=== PATIENT | male | born 1965 | race American Indian/Alaskan Native ===

== ENCOUNTER 2018-04-30 13:17 | Emergency (ER) | payer OTHER, SELFPAY ==
[2018-04-30 13:25] VITALS: BP 159/100; PULSE 73; RESP 16; TEMP 36.6; O2SAT 96
--- NOTE | 2018-04-30 13:59 | DI.RAD_ITS ---
SYMPTOMS/DIAGNOSIS: DISTAL PHALANX PAIN, CONCERN FOR INFECTION LEFT INDEX FINGER: There is generalized soft tissue swelling. There is an apparent tiny bony density adjacent to the anterior portion of the proximal metaphysis of the distal phalanx, which could certainly represent a small cortical avulsion, possibly at the site of the attachment of the flexor tendon. There is otherwise nothing to suggest a fracture or dislocation. The generalized soft tissue swelling could certainly be on the basis of cellulitis. No focal soft tissue abnormality, or gas in the soft tissues or foreign body is demonstrated.
--- NOTE | 2018-04-30 15:18 | W.ED.GENAD ---
Discharge Plan Disposition Patient Disposition: HOME Condition: Stable Discharge Details Chief Complaint: Orthopedic Clinical Impression: Frostbite of finger of right hand Primary Care Provider: Milton Cameron ED Provider: Rich Jaime Home Meds and New Rx's Prescriptions: New aspirin 81 mg tablet,chewable 81 mg PO DAILY Qty: 14 RF: 0 ibuprofen [IBU] 600 mg tablet 600 mg PO QID PRN (Reason: pain) Qty: 14 RF: 0 Discontinued ibuprofen 200 MG tablet 400 mg PRN PRNRF: 0 Discharge Instructions Instructions: Frostbite (ED) Additional Instructions: Continue to take ibuprofen as directed for discomfort and you may continue to apply topical antibiotic ointment such as bacitracin. Follow-up with orthopedist in the next couple weeks for reassessment. Return to the emergency department for any new or significant worsening of your symptoms. Referrals: Luiz Peralta MD [ [facility] STAFF PHYSICIAN] - 2 weeks (for reassessment) Discharge Data Discharge Date/Time-TO BE ENTERED AT DEPARTURE: 04/30/18 15:38 Medical Decision Making Patient presenting to the emergency department for chief complaint of frostbite. Patient states approximately 2 weeks ago he was working on his snow machine and he had to take his gloves off housing him to get frostbite on the right hand on the distal aspects of the first and second fingers. He states that they initially turned blue and were numb. Over the course of the next couple days the middle finger had return of sensation and now is back to his normal. Patient has full function of the digits but his concern today is that the index finger has had continued loss of sensation and that the nailbed has started to lift at the distal end of his fingernail, there is more pain and throbbing proximal to the area of frostbite. Patient denies any fever chills, streaking redness, or purulent drainage just increasing pain. Radiological imaging was ordered of the finger. Patient states taking ibuprofen prior to arrival. Review of radiological imaging shows no gas underneath the skin, no bony abnormality, otherwise unremarkable. Called and spoke with Dr. Peralta due to nailbed changes in finger changes and possible need of surgery which she recommended patient follow-up in their office in the next couple weeks, take a daily aspirin, and continue to use NSAIDs for pain relief. Patient prescribed ibuprofen and aspirin as recommended and encouraged to return to the emergency department for any new or worsening some. After discussion of diagnosis and plan of care patient has no further needs, questions, or concerns and states clear understanding to return to the emergency department for any worsening symptoms. HPI General Mode of arrival: ambulatory. Date/Time Provider Initiated Documentation: 04/30/18 13:22. Limitations to Documentation: no limitations. Information obtained by: patient and RN notes reviewed. History of Present Illness 52 year old M presents to the emergency department with the chief complaint of harper bite, described as moderate, with intensity rated at 6. Quality is described as aching and other (throbbing), and is localized to the right and upper extremity. Patient reports no radiation. Patient started experiencing this week(s) (2) and it has been constant. No relieving factors improve symptom(s), No exacerbating factors reported . Patient notes no other symptoms.. Related Data Home Medications Medication Instructions Recorded Confirmed aspirin 81 mg PO DAILY #14 tab 04/30/18 ibuprofen [IBU] 600 mg PO QID PRN #14 tab 04/30/18 Previous Rx's Medication Instructions Recorded aspirin 81 mg PO DAILY #14 tab 04/30/18 ibuprofen [IBU] 600 mg PO QID PRN #14 tab 04/30/18 Allergies Allergy/AdvReac Type Severity Reaction Status Date / Time No Known Allergies Allergy Unverified 04/30/18 13:30 General Stated Complaint: ColdExpose JEANNETTE: 4 Review of Systems Constitutional Denies chills, Denies fever(s) and Denies weakness Cardiovascular Denies chest pain, Denies syncope and Denies dyspnea Respiratory Denies cough and Denies dyspnea Musculoskeletal Reports numbness Integumentary/Breasts Reports as per HPI, Reports nail changes and Reports skin pain Neurologic Denies syncope, Reports numbness and Denies weakness [facility] Medical History Gout (Acute) Social History Smoking/Tobacco Use Status: Current every day Exam Const General: cooperative, no acute distress and not ill appearing Orientation: alert, awake and oriented x3 HENMT Mouth: moist mucous membranes Resp Effort & Inspection: normal respiratory effort, able to speak in complete sentences and no respiratory distress Cardio Rate: regular rate Rhythm: regular rhythm Skin General skin exam: no rashes or lesions noted Neuro General: alert, awake, oriented x3, moves all extremities and no focal motor deficits Sensory Exam: no sensory deficits noted Extrem General: normal exam except as noted Right upper extremity: hand Details: normal capillary refill, neuromotor exam normal, tenderness Location: of the 2nd digit Location: at the distal phalanx (With extreme distal phalanx having no sensation), at the nailbed and involving the fingernail and normal ROM of fingers Course Vital Signs Temperature 36.6 C 04/30/18 13:25 Pulse 73 04/30/18 13:25 Respiratory Rate 16 04/30/18 13:25 Blood Pressure 159/100 H 04/30/18 13:25 Pulse Oximetry 96 04/30/18 13:25 Temperature 36.6 C 04/30/18 13:25 Temperature Source Skin 04/30/18 13:25 Pulse 73 04/30/18 13:25 Respiratory Rate 16 04/30/18 13:25 Blood Pressure 159/100 H 04/30/18 13:25 Blood Pressure Position Sitting 04/30/18 13:25 Pulse Oximetry 96 04/30/18 13:25 Oxygen Delivery Method Room Air 04/30/18 13:25 Oxygen Flow Rate 0 04/30/18 13:25 Pain Level 6 04/30/18 13:25
== END 2018-04-30 15:38 | disposition home or self-care (01) ==
PROVIDERS: Emergency Provider Nurse Practitioner Family; PCP Family Medicine
DX: T33.531A Superficial frostbite of right finger(s), initial encounter (principal)
CPT/HCPCS: 99284; 73140; 99283

== ENCOUNTER 2018-07-22 10:09 | Outpatient (CLI) | payer SELFPAY ==
--- NOTE | 2018-07-22 09:55 | DI.RAD_ITS ---
SYMPTOMS/DIAGNOSIS: HIT WITH HAMMER LEFT INDEX FINGER: Comparison 04/30/18. The tiny osseous fragment at the volar aspect of the base of the distal phalanx of the left index finger is unchanged. No new fracture or dislocation is appreciated.
== END 2018-07-22 10:29 ==
PROVIDERS: PCP Family Medicine; Visit Provider Orthopaedic Surgery
DX: M79.645 Pain in left finger(s) (principal); S69.92XA Unspecified injury of left wrist, hand and finger(s), initial encounter; W22.8XXA Striking against or struck by other objects, initial encounter
CPT/HCPCS: 73140

== ENCOUNTER 2018-07-24 10:02 | Day surgery (SDC) | payer SELFPAY ==
[2018-07-24 10:13] VITALS: BP 138/100; PULSE 103; RESP 18; TEMP 36.3; O2SAT 94
[2018-07-24] MEDS: Lactated Ringers 1,000 ML 80 ML IV (10:39)
--- NOTE | 2018-07-24 13:25 | W.COLOREPORT ---
Date of service: 07/24/18 Time of Service: 13:25 Colonoscopy Report Date of procedure: 07/24/18 Pre-op diagnosis general: CRC sreening Post-op diagnosis procedure note: same Procedure: ce Surgeon: Becky Pinto Anesthesia proc note operative: GETA Estimated blood loss (mL): 0 Pathology: none sent Complications: None Disposition: PACU Indications: screen Prep: Miralax Retraction Time: 15 mins Findings: normal Procedure Description: After informed consent was obtained the patient was taken to the procedure room and placed in a left decubitous position. Monitors were applied and a time out was done. The patients name, date of , procedure, allergies to medications and metal in their body was reviewed. The patient was then sedated. Once sedated and comfortable a rectal exam was done. External exam shows some flat type epithelial lesion. mult scattered. Internal exam revealed a normal sphincter tone and no palpable masses. The prostate nl The scope was then introduced and retroflex. [ no] internal hemorrhoids were identified. The scope was then advanced to the cecum minimal difficulty. The TI and appendiceal orifice were identified. The prep was moderate- there was some liquid material left. This was washed off as best we could- small lesions <5cm may have been missed. The scope was then slowly retracted over 15 minutes back into the rectum. no Polyps were removed The scope was removed and the patient was woken up and taken back to Same day surgery in stable condition. The patient tolerated the procedure well and there were no immediate complications. Follow up: The patient should follow up in 10 years unless they develop changes in bowel habits or other new gastrointestinal complaints.
--- NOTE | 2018-07-24 13:42 | W.PM.DSUDISC ---
Discharge Plan Disposition Patient Disposition: HOME Condition: Good Discharge Details Reason For Visit: SCREENING Attending Provider: Becky Pinto Primary Care Provider: Milton Cameron Home Meds and New Rx's Prescriptions: Continued naproxen sodium [Aleve] 220 mg tablet 220 mg PO BID PRNRF: 0 ibuprofen 200 mg capsule 200 mg PO TID-QID PRNRF: 0 acetaminophen [Acetaminophen Extra Strength] 500 mg Tablet 1,000 mg PO RF: 0 aspirin 81 mg tablet,chewable 81 mg PO DAILY Qty: 14 RF: 0 Discontinued polyethylene glycol 3350 17 gram/dose powder 238 g PO ONCE Qty: 238 RF: 0 bisacodyl [Dulcolax (bisacodyl)] 5 mg tablet,delayed release (DR/EC) 5 mg PO ONCE Qty: 4 RF: 0 Discharge Instructions Additional Instructions: Findings: normal colon repeat in 10 yrs time Follow up: Please call if you develop: fevers >101.5 Nausea or Vomiting Abdominal pain that is not transient DAY SURGERY UNIT POST COLONOSCOPY INSTRUCTIONS 1. Because there will be medication in your system for the next 24 hours, you may feel a little sleepy. Your coordination will be affected. Therefore: a. Do not drive or operate dangerous equipment for 24 hours. b. Do not drink alcohol beverages for 24 hours (not even beer). c. Plan to go home and rest for the day. 2. Generally there are no restrictions on your activity after a day or so has gone by, but you may feel a bit fatigued for a few days. 3 After you arrive home you may have a light meal and return to a normal diet as you can tolerate it without feeling sick to your stomach. 4. After surgery, you may feel pain or discomfort. This should be only transient, but if it persists please contact your doctor. 5. If there are any questions regarding the findings of your procedure, please feel free to contact your doctor. 6. If you are unable to contact your doctor with a problem, contact the hospital at [phone]. 7. Continue all your regular medications unless directed otherwise. I understand the above instructions and have no questions. Signature of Patient or Responsible Adult Escort Date/Time Name of Responsible Adult Escort Signature of Nurse Date/Time Stand Alone Forms: Lazara Andre (PRATEEKU) Activity:: Activity as Tolerated Diet:: soft x 24 hrs Discharge Orders Discharge Orders: Discharge Order (Routine); Ordered 07/24/18 Ordered By: Becky Pinto DS: Diagnosis Discharge Diagnosis (1) Encounter for screening colonoscopy: Status: Acute
[2018-07-24 14:00] VITALS: BP 148/101; PULSE 78; RESP 16; TEMP 36.1; O2SAT 95
== END 2018-07-24 14:19 | disposition home or self-care (01) ==
PROVIDERS: PCP Family Medicine; Visit Provider Surgery
PROC: 0DJD8ZZ Inspection of Lower Intestinal Tract, Via Natural or Artificial Opening Endoscopic (ICD-10-PCS; CPT 45378; principal; 2018-07-24 11:45)
DX: Z12.11 Encounter for screening for malignant neoplasm of colon (principal)
CPT/HCPCS: 45378

== ENCOUNTER 2019-09-16 11:27 | Outpatient (CLI) | payer SELFPAY ==
[2019-09-17 15:30] LABS: COVID-19 RT-PCR Result NEGATIVE (Negative)
== END 2019-09-16 11:47 ==
PROVIDERS: PCP Family Medicine; Visit Provider Family Medicine
DX: Z11.59 Encounter for screening for other viral diseases (principal)
CPT/HCPCS: U0003

== ENCOUNTER 2020-09-23 09:14 | Emergency (ER) | payer SELFPAY ==
[2020-09-23 09:20] VITALS: BP 141/100; PULSE 86; RESP 16; TEMP 36.6; O2SAT 94
--- NOTE | 2020-09-23 09:36 | ED.GENADUL_ITS ---
Discharge Plan Disposition Patient Disposition: HOME Condition: Stable Discharge Details Clinical Impression: Dental infection, Right facial swelling Primary Care Provider: Milton Cameron ED Provider: Chrissy Tinoco Home Meds and New Rx's Prescriptions: New penicillin V potassium 500 mg tablet 500 mg PO QID 7 Days Qty: 28 RF: 0 Continued naproxen sodium [Aleve] 220 mg tablet 220 mg PO BID PRNRF: 0 ibuprofen 200 mg capsule 200 mg PO TID-QID PRNRF: 0 acetaminophen [Acetaminophen Extra Strength] 500 mg Tablet 1,000 mg PO PRN PRNRF: 0 aspirin 81 mg tablet,chewable 81 mg PO DAILY Qty: 14 RF: 0 Discharge Instructions Instructions: Dental Abscess (ED) Additional Instructions: You appear to have a dental infection. There is no abscess noted but you were given dental abscess instructions for further information. Your antibioitic prescription has been sent electronically to your pharmacy. Ca ll the pharmacy to make sure your prescription is ready before pickup. Take the prescription as directed. Alternate tylenol and motrin as needed and directed for pain. Do not take naproxen and ibuprofen at the same time as these are both NSAIDs (nonsteroidal anti-inflammatory drugs) which can increase your risk of GI bleeding or ulcer. You can take either naproxen or naproxen as an NSAID as needed and directed for pain. You likely cannot receive your second Covid vaccine today as you have a dental infection and this may cause worsening side effects on your immune system which is already trying to fight off an infection in your tooth. Go to the [facility] today to discuss whether they recommend withholding on your vaccine today and if so, when to reschedule it. Call [facility] on Friday to schedule follow-up appointment for reevaluation. They likely will not see you until your infection is treated Return immediately to the emergency department if you develop any worsening or new concerning symptoms. Discharge Data Discharge Physician: Chrissy Tinoco Medical Decision Making 55-year-old male presents with right upper dental pain and right-sided facial swelling since yesterday. Similar presentation 1 month ago diagnosed possibly sialoadenitis or parotitis and advised on supportive care. No antibiotics given at that time. His blood pressure is mildly elevated, otherwise vitals within normal limits. He is afebrile and appears nontoxic. He has poor dentition and dental caries throughout. He is tender to palpation around tooth #4 and 5 with surrounding mild mucosal edema and erythema but no abscess noted. There is right-sided facial swelling over the maxilla consistent with local inflammatory reaction to dental infection. Patient presentation does not appear consistent with sialoadenitis of parotitis at this time. He has no drooling, trismus, submandibular swelling or preauricular swelling or tenderness. We will treat with oral antibiotics. Patient advised that likely he should not receive the second was ordered vaccine today. He is advised to go to [facility] to discuss this further with them and hopefully reschedule his vaccine. Advised to follow-up with dentist for reevaluation. Usual and customary return precautions given prior to discharge. Medical Records Medical records reviewed: Yes I reviewed the patient's medical records. HPI General Mode of arrival: ambulatory . Date/Time Provider Initiated Documentation: 09/23/20 09:15 . Limitations to Documentation: no limitations . Information obtained by: patient . HPI Narrative: Patient is a 55-year-old male who presents with right-sided facial swelling and dental pain since yesterday. Patient states he had similar symptoms last month which was told it may be a salivary duct stone by his PCP and we his advised on supportive care but not treated with antibiotics. Patient states his symptoms completely resolved until yesterday when he noted dental pain and right-sided facial swelling. He denies any known fever, difficulty swallowing, cough, chest pain, shortness of breath or vomiting. Patient states he is scheduled for a second look during the Covid vaccine today and is unsure if he should get this. Related Data Home Medications Medication Instructions Recorded Confirmed aspirin 81 mg PO DAILY #14 tab 04/30/18 09/23/20 naproxen sodium 220 mg tablet 220 mg PO BID PRN 05/21/18 09/23/20 ibuprofen 200 mg capsule 200 mg PO TID-QID PRN 07/17/18 09/23/20 acetaminophen [Acetaminophen Extra 1,000 mg PO PRN PRN 07/24/18 09/23/20 Strength] penicillin V potassium 500 mg PO QID 7 Days #28 tab 09/23/20 Previous Rx's Medication Instructions Recorded aspirin 81 mg PO DAILY #14 tab 04/30/18 penicillin V potassium 500 mg PO QID 7 Days #28 tab 09/23/20 Allergies Allergy/AdvReac Type Severity Reaction Status Date / Time No Known Allergies Allergy Verified 09/01/20 09:13 General Stated Complaint: DentalOral JEANNETTE: 3 Review of Systems All systems reviewed & are unremarkable except as noted in HPI and below Constitutional Constitutional: Reports as per HPI, Denies chills and Denies fever(s) Eyes Eyes: Denies blurry vision ENT Ears, Nose, Mouth, and Throat: Reports dental pain, Denies dizziness, Reports facial pain (and swelling), Denies sore throat and Denies throat swelling Cardiovascular Cardiovascular: Denies chest pain and Denies dyspnea Respiratory Respiratory: Denies cough and Denies dyspnea Gastrointestinal Gastrointestinal: Denies abdominal pain, Denies diarrhea and Denies vomiting Genitourinary Genitourinary: Denies hematuria and Denies dysuria Musculoskeletal Musculoskeletal: Denies back pain and Denies numbness Integumentary/Breasts Skin/Breast: Denies lesions and Denies rash Neurologic Neurologic: Denies dizziness, Denies localized weakness and Denies numbness Allergic/Immunologic Allergic/Immunologic: Denies throat swelling [facility] Medical History (Updated 09/23/20 @ 09:37 by Chrissy Tinoco DO) Frostbite Left index and middle fingers Gout Gout History of pneumothorax Normal colonoscopy Surgical History History of arthroscopy of left knee History of esophagogastroduodenoscopy (EGD) 07/24/[address] Becky Pinto, [facility], normal, repeat in ten years. 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 Pets and animals: Yes Pets and animals: dog(s) Current gender identity: male What type of physical activity do you participate in: occasional exercise Seatbelt use: always Drive intox or ride w/intox scoop driver: No Water heater temp set <120 deg: Yes Working smoke detector in home: Yes Fire extinguisher in home: Yes Carbon monox detector in home: Yes Do you feel safe at home: Yes Do you feel safe in your relationship?: Yes Exam Const General: cooperative, healthy appearing and no acute distress [facility] Head: normal to inspection Ears: hearing grossly normal bilaterally, external ears normal and TM's normal bilaterally General nose exam: external nose normal Face images: 1. Right-sided moderate edema and tenderness to palpation overlying right maxilla. There is no obvious crepitus, abscess or trauma noted. Mouth: oral mucosae normal, no drooling and no trismus Teeth and gingiva: caries and poor dentition Teeth image: 1. Tenderness to palpation around tooth #4 and 5. Majority of the tooth is missing but base is remaining. Tooth appears discolored consistent with dental caries. There is surrounding mild edema and erythema but no abscess noted. No active drainage or bleeding. Throat: posterior oropharynx normal Eyes General: appearance normal, both eyes and all related structures Neck Neck: normal visual inspection, full ROM, no lymphadenopathy, no meningeal signs, trachea midline, supple, no anterior neck swelling and No submandibular swelling Resp Effort & Inspection: normal respiratory effort and able to speak in complete sentences Cardio Rate: regular rate Skin General skin exam: no rashes or lesions noted Neuro General: patient alert, patient awake and patient oriented x3 Motor: muscle tone normal throughout Extrem General: normal to inspection and full ROM Psych Appearance: grossly normal Affect: normal affect Course Vital Signs Vital signs: Vital Signs Temperature 97.8 F 09/23/20 09:20 Pulse 86 09/23/20 09:20 Respiratory Rate 16 09/23/20 09:20 Blood Pressure 141/100 H 09/23/20 09:20 Pulse Oximetry 94 09/23/20 09:20 Temperature 97.8 F 09/23/20 09:20 Temperature Source Oral 09/23/20 09:20 Pulse 86 09/23/20 09:20 Respiratory Rate 16 09/23/20 09:20 Respiratory Effort Non-Labored 09/23/20 09:24 Blood Pressure 141/100 H 09/23/20 09:20 Blood Pressure Position Sitting 09/23/20 09:20 Pulse Oximetry 94 09/23/20 09:20 Oxygen Delivery Method Room Air 09/23/20 09:20 Oxygen Flow Rate 0 09/23/20 09:20 Pain Level 5 09/23/20 09:20
== END 2020-09-23 09:52 | disposition home or self-care (01) ==
PROVIDERS: Emergency Provider Physician Assistant; PCP Family Medicine
DX: K04.7 Periapical abscess without sinus (principal)
CPT/HCPCS: 99283

== ENCOUNTER 2020-12-08 07:10 | Outpatient (CLI) | payer SELFPAY ==
[2020-12-08] MEDS: Inhaler, Assist Device 1 EACH MC (08:51)
[2020-12-08] MEDS: Albuterol HFA 18 GM 200 PUFF INH IH (08:51)
--- NOTE | 2020-12-10 18:42 | W.PFT ---
Date of service: 12/08/20 Time of Service: 08:07 Pulmonary Function Test Result Requesting Provider Milton Cameron Interpretation Spirometry: Moderate airflow obstruction is present. There is a significant bronchodilator response with a 12% increase and 340cc increase in the FVC with albuterol administration. There is a low FVC Impression Moderate airflow obstruction with significant bronchodilator response. The low FVC is likely due to airflow obstruction rather than a restrictive process, inadequate effort or obesity, but this cannot be ruled out from basic spirometry. Recommend full PFT's with lung volumes to assess further if clinically appropriate. Clinical Correlation therefore is recommended.
== END 2020-12-08 07:11 | disposition home or self-care (01) ==
LOC: RT 07:11
PROVIDERS: PCP Family Medicine; Visit Provider Family Medicine
DX: J45.909 Unspecified asthma, uncomplicated (principal); J44.9 Chronic obstructive pulmonary disease, unspecified
CPT/HCPCS: 94060

== ENCOUNTER 2021-08-31 01:42 | Outpatient (CLI) | payer SELFPAY | END 2021-08-31 01:43 | disposition home or self-care (01) | LOC: LBO 01:42 | PROVIDERS: PCP Family Medicine; Visit Provider Family Medicine ==

== ENCOUNTER 2021-09-03 11:21 | Emergency (ER) | payer SELFPAY ==
[2021-09-03] VITALS (26 sets, daily range): BP systolic 107–143; BP diastolic 79–115; PULSE 71–103; RESP 16–18; TEMP 36.8; O2SAT 93–96
--- NOTE | 2021-09-03 11:49 | W.ED.GENAD ---
Discharge Plan Disposition Patient Disposition: HOME Condition: Stable Discharge Details Clinical Impression: Monocular diplopia of right eye, SARS-CoV-2 positive Primary Care Provider: Milton Cameron ED Provider: Milana Heredia Home Meds and New Rx's Prescriptions: Continued naproxen sodium [Aleve] 220 mg tablet 220 mg PO BID PRN0RF ibuprofen 200 mg capsule 200 mg PO TID-QID PRN0RF Label Comments: for frostbite and hammer injury to left hand (DME) [facility] Spacer See Rx Instructions .ROUTE .MEDSUPPLY Qty: 1 0RF Rx Instructions: As directed fluticasone propionate 50 mcg/actuation spray,suspension 1 spray intranasal DAILY Qty: 16 6RF Hold Instructions: Home Medication placed on hold at Doctor's office Rx Instructions: administer into each nostril albuterol sulfate [Ventolin HFA] 90 mcg/actuation HFA aerosol inhaler 2 puff inhalation Q4H PRN (Reason: shortness of breath or wheezing) Qty: 8.5 6RF acetaminophen [Acetaminophen Extra Strength] 500 mg Tablet 1,000 mg PO PRN PRN0RF aspirin 81 mg tablet,chewable 81 mg PO DAILY Qty: 14 0RF Discharge Instructions Instructions: Blurred Vision (ED) Additional Instructions: Your CT scan and MRI are reassuring here today. I am concerned that this is associated with the eye itself. You have an appointment with [facility] for further evaluation tomorrow morning at 830. If you have any questions, number listed listed below. If you develop fever/worsening headache, worsening symptoms, weakness, confusion, sensation changes or other new/worsening symptoms to seek care urgently once again. Otherwise, please follow-up with your primary care in the next 1 to 2 weeks for reevaluation and for continued care of your known COVID-19 diagnosis. Referrals: [facility] [Outside] - 09/04/21 8:30 am Milton Cameron DO [Primary Care Provider] - Medical Decision Making Patient is a pleasant 56-year-old gentleman presenting today with chief complaint of change in vision on the right eye. Patient reports he woke with the symptoms this morning 6 AM. States that they have been steadily since then and describes it as horizontal diplopia and blurriness to his vision. He denies any deficits. No headaches. No trauma. 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 States that typically he wears reading glasses but not close but otherwise is not wearing any corrective lenses. Patient is COVID-positive, diagnosed last week. He denies any shortness of breath, chest pain. States that he had very mild cough with congestion but feels he is tolerating him COVID well. Was vaccinated for COVID. IV history of asthma. His primary care is involved in his known COVID diagnosis and did prescribe him an inhaler. Patient denies any pain in the eye. No change in speech, weakness, sensory deficits. N On exam, patient appears nontoxic. Left pupil is fairly nonreactive. However, the right does respond well to light. Extraocular movements are intact. No pain with extraocular movements. Vision using the hand-held Snellen card is 20/50. However, when reading the numbers on the card he reads them and double consistent with him describing a horizontal diplopia. For example, if the number is 2 the patient will read it as 22. Cranial nerves are otherwise intact. No ataxia normal Romberg. Lungs are clear, normal cardiac exam. Concern for potential ischemic event, particularly given the patient's history of COVID which will increase his risk of clots. He denies any personal or familial history of clot. Will obtain EKG to evaluate for any potential underlying causes of atrial fibrillation, will obtain baseline blood work as well as CTA head and neck. Patient is out of the window for any emergent intervention. However, if the patient is blind in the contralateral side, I do feel that aggressive evaluation and management of the right I would be appropriate for trial of conservative as much vision as possible. Contacted by radiologist, they note maxillary sinus disease but no vascular changes or evidence of acute CVA. Concerned that patient continues to have diplopia in the right eye, will move forward with MRI. Contacted by radiologist who advises MRI is without acute process. No white matter lesions. Have pushed images to [facility], have requested consultation with neurology. Reevaluated [facility] patient. He feels that his blurred vision is somewhat improved but that his diplopia continues. Again I performed visual acuity and patient is a 30 20/50 on the right, this is with the left eye covered. Despite a left-sided encumber, he continues to have horizontal diplopia reading each number twice. All jay of vision are intact. No nicking or abnormalities appreciated on exam or retina Consulted with Dr. Rodríguez with [facility] neurology. She advises monocular visual changes would need to be within the eye but no neurologic source noted. Advised vascular risk assessment for baseline care to prevent stroke but no acute recommendations. Spoke with physician at [facility]. Reviewed the case and neurology advisement/imaging. They advised that this is likely associated with stigmatism or cataract. 0830 tomorow morning. Discussed these recommendations with the patient at length. He is able to make the appointment tomorrow morning at 830 with [facility]. Strict return precautions were discussed. I also asked that he continue to follow-up with his primary care provider regarding his known COVID-19 diagnosis. All of his questions and concerns were addressed and significant decline. HPI General Date/Time Provider Initiated Documentation: 09/03/21 11:49. Limitations to Documentation: no limitations. Information obtained by: patient and RN notes reviewed. History of Present Illness 56 year old M presents to the emergency department with the chief complaint of diplopia, blurred vision, described as moderate, Quality is described as other (denies any pain or unusal sensation), and is localized to the eyes (right). Patient reports no radiation. Patient started experiencing this hour(s) (woke with symptoms at 0600, unclear last known well) and it has been constant. improves with No relieving factors improve symptom(s), No exacerbating factors reported . Patient notes no other symptoms.. Patient did receive the following treatments prior to arrival, none Related Data Home Medications Medication Instructions Recorded Confirmed aspirin 81 mg chewable tablet 81 mg PO DAILY #14 tab 04/30/18 09/03/21 naproxen sodium 220 mg tablet 220 mg PO BID PRN 05/21/18 12/01/20 (Aleve) ibuprofen 200 mg capsule 200 mg PO TID-QID PRN 07/17/18 12/01/20 acetaminophen 500 mg tablet 1,000 mg PO PRN PRN 07/24/18 12/01/20 (Acetaminophen Extra Strength) albuterol sulfate 90 mcg/actuation 2 puff INHALATION Q4H PRN #8.5 g 12/01/20 09/03/21 aerosol inhaler (Ventolin HFA) fluticasone propionate 50 1 spray INTRANASAL DAILY #16 g 12/01/20 12/01/20 mcg/actuation nasal spray,suspension inhalational spacing device #1 ea 12/01/20 12/01/20 (Beti [address] [facility]) Previous Rx's Medication Instructions Recorded aspirin 81 mg chewable tablet 81 mg PO DAILY #14 tab 04/30/18 albuterol sulfate 90 mcg/actuation 2 puff INHALATION Q4H PRN #8.5 g 12/01/20 aerosol inhaler (Ventolin HFA) fluticasone propionate 50 1 spray INTRANASAL DAILY #16 g 12/01/20 mcg/actuation nasal spray,suspension Allergies Allergy/AdvReac Type Severity Reaction Status Date / Time No Known Allergies Allergy Verified 06/01/21 08:07 General Stated Complaint: EyeProblem JEANNETTE: 3 Review of Systems Constitutional Constitutional: Reports as per HPI, Denies chills, Denies fever(s), Denies frequent falls, Denies headache(s) and Denies weakness Eyes Eyes: Reports as per HPI, Reports blurry vision, Reports change in vision, Reports diplopia, Denies eye discharge, Denies floaters, Denies irritation, Denies itchy eyes, Denies loss of peripheral vision, Denies loss of vision, Denies eye pain and Reports requires corrective lenses (with reading) ENT Ears, Nose, Mouth, and Throat: Denies vertigo, Denies headache(s) and Denies neck pain Cardiovascular Cardiovascular: Reports as per HPI, Denies chest pain, Denies lightheadedness, Denies radiating jaw, neck or arm pain, Denies dyspnea and Denies dyspnea on exertion Respiratory Respiratory: Reports as per HPI, Denies chest congestion, Denies cough, Denies dyspnea and Denies dyspnea on exertion Gastrointestinal Gastrointestinal: Reports as per HPI, Denies abdominal pain, Denies change in bowel habits, Denies nausea and Denies vomiting Genitourinary Genitourinary: Reports system reviewed and no additional complaints, except as documented (denies change in urinary habits) Musculoskeletal Musculoskeletal: Reports as per HPI, Denies back pain, Denies myalgias, Denies muscle cramps, Denies neck pain and Denies numbness Integumentary/Breasts Skin/Breast: Reports as per HPI and Denies rash Neurologic Neurologic: Reports as per HPI, Denies abnormal movements, Denies abnormal speech, Denies behavioral changes, Denies confusion, Denies vertigo, Denies frequent falls, Denies headache(s), Denies localized weakness, Denies loss of vision, Denies numbness, Denies sensory deficit and Denies weakness Psychiatric Psychiatric: Denies behavioral changes and Denies confusion Allergic/Immunologic Allergic/Immunologic: Denies itchy eyes PFSH All Active Problems (Updated 09/03/21 @ 15:47 by LATASHA Mckeon) Monocular diplopia of right eye (Acute) SARS-CoV-2 positive (Acute ~08/31/21) Asthma, mild intermittent (Acute) Nasal polyp (Acute) Dental infection (Acute) Right facial swelling (Acute) Encounter for screening colonoscopy (Acute) Frostbite (Acute) Left index and middle fingers Gout (Chronic) Medical History (Updated 09/03/21 @ 15:47 by LATASHA Mckeon) Gout History of pneumothorax Normal colonoscopy Surgical History History of arthroscopy of left knee History of esophagogastroduodenoscopy (EGD) 07/24/[address] Becky Pinto, [facility], normal, repeat in ten years. 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 Pets and animals: Yes Pets and animals: dog(s) Current gender identity: male What type of physical activity do you participate in: occasional exercise Seatbelt use: always Drive intox or ride w/intox pizza driver: No Water heater temp set <120 deg: Yes Working smoke detector in home: Yes Fire extinguisher in home: Yes Carbon monox detector in home: Yes Do you feel safe at home: Yes Do you feel safe in your relationship?: Yes Exam Const General: cooperative, healthy appearing, comfortable, no acute distress, well developed and well groomed Nutritional Appearance: well nourished and overweight Orientation: alert, awake and oriented x3 HENMT Head: normal to inspection, no palpable skull fracture, normocephalic and atraumatic Ears: hearing grossly normal bilaterally, external ears normal and TM's normal bilaterally General nose exam: external nose normal Mouth: oral mucosae normal and moist mucous membranes Throat: posterior oropharynx normal Eyes Visual Jay: normal visual jay by confrontation (right eye, patient blind in left eye) Alignment and Position: alignment normal and position normal Periorbital: periorbital findings normal Eyelids: eyelids normal Conjunctivae: conjunctivae normal Sclera: sclerae normal Cornea: corneas normal Pupils: PERRL (right eye, left eye is nonreactive- chronic condition) EOM: EOM intact bilaterally Direct ophthalmoscopy: normal light reflex, anterior chamber normal, photophobia not present and no vascular abnormalities Neck Neck: normal visual inspection, full ROM, no lymphadenopathy and no meningeal signs Resp Effort & Inspection: normal respiratory effort, able to speak in complete sentences and no respiratory distress Auscultation: clear to auscultation bilaterally, no rales, no rhonchi and no wheezes Cardio Rate: regular rate Rhythm: regular rhythm Heart Sounds: S1 normal and S2 normal GI Inspection: normal to inspection and non-distended Palpation: soft, no hepatosplenomegaly, not firm, no guarding, not rigid and nontender Percussion: normal to percussion Auscultation: normal bowel sounds Back/Spine/Pelvis Cervical Spine: normal cervical lordosis and cervical ROM normal Skin General skin exam: no rashes or lesions noted Neuro General: patient alert, patient awake and patient oriented x3 Cranial Nerves: CN's II-XI intact bilaterally (aside from known left eye visual deficit) Cognition: normal cognition Speech: speech normal Gait: normal gait Motor: muscle tone normal throughout, strength 5/5 throughout, no pronator drift, no movement abnormalities noted and no fasciculations Sensory Exam: no sensory deficits noted DTR's: Rt Biceps: 2+, Lt Biceps: 2+, Rt Brachioradialis: 2+, Lt Brachioradialis: 2+, Rt Patellar: 2+, Lt Patellar: 2+, Rt Ankle: 2+ and Lt Ankle: 2+ Coordination: [id number] test normal, [id number] test normal, Romberg test normal, Does not sway with eyes open and rapid alternating movement UE normal Extrem General: normal to inspection, capillary refill normal, no pedal edema and no calf tenderness Psych Appearance: grossly normal and well kempt Mental Status: mental status grossly normal Speech and Movement: speech and movement normal Course Vital Signs Vital signs: Vital Signs Temperature 36.8 C 09/03/21 11:30 Pulse 78 09/03/21 11:30 Respiratory Rate 18 09/03/21 11:30 Blood Pressure 138/98 H 09/03/21 11:30 Pulse Oximetry 96 09/03/21 11:30 Temperature 36.8 C 09/03/21 11:30 Temperature Source Tympanic 09/03/21 11:30 Pulse 78 09/03/21 11:30 Respiratory Rate 18 09/03/21 11:30 Respiratory Effort Non-Labored 09/03/21 11:33 Blood Pressure 138/98 H 09/03/21 11:30 Pulse Oximetry 96 09/03/21 11:30 Oxygen Delivery Method Room Air 09/03/21 11:30 Oxygen Flow Rate 0 09/03/21 11:30 Pain Level 0 09/03/21 11:30
--- NOTE | 2021-09-03 12:00 | RT.EKG_ITS ---
APPROVED REPORT Exam: Resting ECG Reason for Exam: change in vision Patient Location: E HR:91 bpm ECG Measurements Heart Rate 91 AXIS IL 138 P 76 QRSd 97 QRS 199 QT 354 T 68 QTc 434 Conclusion Sinus rhythm...normal P axis, V-rate 60- 99 Right ventricular hypertrophy...prominent R or R' w/ RAD or ALLEN Inferior infarct, old...Q >35mS, II III aVF Nonspecific T abnormalities, lateral leads...T <-0.10mV, I aVL V5 V6 sinus rhythm, left axis, non ischemic
--- NOTE | 2021-09-03 12:11 | DI.CT_ITS ---
Exam(s) CT BRAIN NECK CTA EXAM: CT BRAIN NECK CTA CLINICAL HISTORY: diplopia right eye. TECHNIQUE: Imaging Protocol: Axial CT angiography was performed with multi-slice acquisition and mu lti-planar and 3D reconstructions. CONTRAST MATERIAL: Intravenous: Omnipaque 350 Contrast volume:structured data in ml COMPARISON: CT CHEST ABD PELVIS WO CONTRAST from 09/13/2017 CR XR CHEST 1V IN DI DEPT from 09/03/2021 FINDINGS: CT Head W/O and W contrast: Ventricles and Extra axial spaces: Normal in size and morphology for the patient's age. Hemorrhage: None. Cerebral parenchyma: Normal. Midline shift: None. Brainstem/Cerebellum: Normal. Calvarium: Normal. Visualized Paranasal sinuses/Mastoids: Significant opacification of both maxillary sinuses. Mucosal thickening in ethmoid sinuses. Mastoid air cells clear. Soft Tissues: Unremarkable. Orbits and pituitary unremarkable. Enhancement: Normal. CTA Brain W: Internal Carotid Arteries: Petrous: Normal. Cavernous: Normal. Cerebral: Normal. Middle Cerebral Arteries: Right: No aneurysm, occlusion or significant stenosis. Left: No aneurysm, occlusion or significant stenosis. Anterior Cerebral Arteries: Right: No aneurysm, occlusion or significant stenosis. Left: No aneurysm, occlusion or significant stenosis. Posterior cerebral Arteries: Right: No aneurysm, occlusion or significant stenosis. Left: No aneurysm, occlusion or significant stenosis. Vertebral Arteries: Right: No aneurysm, occlusion or significant stenosis. Left: No aneurysm, occlusion or significant stenosis. Basilar Artery: No aneurysm, occlusion or significant stenosis. CTA Neck W: Common Carotid: Right: Minimal calcification at the bulb. No aneurysm, occlusion or significant stenosis. Left: Minimal calcification at the bulb. No aneurysm, occlusion or significant stenosis. External Carotid: Right: No aneurysm, occlusion or significant stenosis. Left: No aneurysm, occlusion or significant stenosis. Internal Carotid: Right: No aneurysm, occlusion or significant stenosis. Tortuous. Left: No aneurysm, occlusion or significant stenosis.. Tortuous. Vertebral Artery: Right: No aneurysm, occlusion or significant stenosis. Left: No aneurysm, occlusion or significant stenosis. Lung Apices: Respiratory motion. Mild emphysematous changes. Bones: Degenerative disc changes. Soft Tissues: Normal. IMPRESSION: 1. Normal CTA examination of the [place]. 2. Unremarkable CT Head. Sinus disease. 3. Normal CTA examination of the neck. RADIATION DOSE DELIVERED: 2,146.5mGy.cm Total DLP DATA REPOSITORY: All CT scans at this facility are submitted to the National Radiology Data Registry (NRDR) Dose Index Registry (DIR) with the [employer] (ACR). RADIATION OPTIMIZATION: All CT scans at this facility use at least one of these dose optimization te chniques: automated exposure control; mA and/or kV adjustment per patient size (includes targeted exa ms where dose is matched to clinical indication); or iterative reconstruction.
--- NOTE | 2021-09-03 12:14 | DI.RAD_ITS ---
Exam(s) XR CHEST 1V IN DI DEPT EXAM: XR CHEST 1V IN DI DEPT CLINICAL HISTORY: covid + TECHNIQUE: 2D digital imaging was performed. COMPARISON: CT CHEST ABD PELVIS WO CONTRAST from 09/13/2017 FINDINGS: LUNGS: Clear. No pleural abnormality seen. HEART: Normal. AORTA: Normal. BONES: Unremarkable for age. Soft tissues: Unremarkable. IMPRESSION: No acute findings. DATA REPOSITORY: RADIATION DOSE DELIVERED:
[2021-09-03 12:38] LABS: Abs Immature Grans 0.03 10^3/uL (0.0-0.06); Absolute Basophil Count 0.06 10^3/uL (0.0-0.2); Absolute Eosinophil Count 0.13 10^3/uL (0.0-0.7); Absolute Lymphocyte Count 3.16 10^3/uL (1.2-3.4); Absolute Monocyte Count 0.66 10^3/uL (0.1-0.8); Absolute Neutrophil Count 5.98 10^3/uL (1.2-6.7); Basophils % 0.6; Eosinophils % 1.3; HCT 52.1 % (40.0-50.0); HGB 17.8 g/dL (13.5-17.5); Immature Grans % 0.3; Lymphocytes % 31.5; MCH 33.6 pg (27.0-33.0); MCHC 34.2 % (32.0-36.0); MCV 99 fL (80-95); MPV 9.3 fL (8.0-11.0); Monocytes % 6.6; Neutrophils % 59.7; Platelet Count 243 10^3/uL (130-400); RBC 5.29 10^6/uL (4.36-5.78); RDW-SD 47.4 fL; WBC 10.02 10^3/uL (4.4-10.8)
[2021-09-03 12:53] LABS: ALT 45 U/L (16-63); AST 25 U/L (15-37); Albumin 3.9 g/dL (3.4-5.0); Alkaline Phosphatase 76 U/L (46-116); Anion Gap 9.2 mmol/L (3-11); BUN 13 mg/dL (7-18); Bilirubin, Total 0.5 mg/dL (0.2-1.0); CO2 27.8 mmol/L (21.0-32.0); Calcium 9.3 mg/dL (8.5-10.1); Chloride 103 mmol/L (98-107); Glucose 123 mg/dL (74-106); Magnesium 2.1 mg/dL (1.8-2.4); Potassium 4.5 mmol/L (3.5-5.1); Sodium 140 mmol/L (136-145); Total Protein 8.5 g/dL (6.4-8.2); Troponin I < 50 ng/L (<or=60)
[2021-09-03] MEDS: Omnipaque 350 MG/ML 100 ML BTL IV (13:35)
--- NOTE | 2021-09-03 14:00 | DI.MRI_ITS ---
Exam(s) MR BRAIN WO EXAM: MR BRAIN WO the CLINICAL HISTORY: diplopia right eye TECHNIQUE: Multiplanar multisequence MRI of the brain was performed. COMPARISON: CT CT BRAIN NECK CTA from 09/03/2021 FINDINGS: VENTRICLES AND EXTRA AXIAL SPACES: Normal in size and morphology for the patient's age. MIDLINE SHIFT: None. CEREBRAL PARENCHYMA: Mild atrophy. No focus of restricted diffusion to suggest acute infarct. No spa ce-occupying lesion identified. No white matter lesions. HEMORRHAGE: None. BRAINSTEM/CEREBELLUM: Normal. VISUALIZED PARANASAL SINUSES/MASTOIDS: Near complete opacification of the right maxillary sinus. Sev ere me mucosal thickening and mucous retention in the left maxillary sinus. Mucosal thickening of th e ethmoid sinuses. Mastoid air cells clear. GAMBELL OF ROSS: Normal flow void. PITUITARY GLAND: Unremarkable. OTHER FINDINGS: Optic nerves and extraocular muscles symmetric. Globes appear normal. Normal signal in intraconal fat. IMPRESSION: Sinus disease, otherwise unremarkable MRI of the brain. Results of this exam have been verbally communicated with emergency department provider. DATA REPOSITORY:
== END 2021-09-03 16:03 | disposition home or self-care (01) ==
PROVIDERS: Emergency Provider Physician Assistant; PCP Family Medicine
DX: H53.2 Diplopia (principal); U07.1 COVID-19
CPT/HCPCS: 36416; 70496; 70498; 80053; 82962; 93005; 99285; 70551; 71045; 83735; 84484; 85025; 93010; 99284; J3490

== ENCOUNTER 2022-08-12 02:12 | Outpatient (CLI) | payer SELFPAY ==
[2022-08-14 10:12] LABS: Hepatitis C Ab w Rflx HCV PCR Negative (Negative)
[2022-08-14 10:27] LABS: HIV-1/2 Ag & Ab Screen Negative (Negative)
== END 2022-08-12 02:13 | disposition home or self-care (01) ==
LOC: LBO 02:13
PROVIDERS: PCP Family Medicine; Visit Provider Family Medicine
DX: Z11.3 Encounter for screening for infections with a predominantly sexual mode of transmission (principal); Z11.4 Encounter for screening for human immunodeficiency virus [HIV]; Z11.59 Encounter for screening for other viral diseases
CPT/HCPCS: 36415; 86803; 87389

== ENCOUNTER 2022-08-16 15:55 | Outpatient (CLI) | payer SELFPAY ==
--- NOTE | 2022-08-16 15:45 | RT.EKG_ITS ---
APPROVED REPORT Exam: Resting ECG Reason for Exam: Patient complaint of chest pain Patient Location: O HR:80 bpm ECG Measurements Heart Rate 80 AXIS ND 144 P 79 QRSd 100 QRS 238 QT 366 T 90 QTc 423 Conclusion Sinus rhythm...normal P axis, V-rate 50- 99 Inferior infarct, old...Q >35mS, II III aVF Lateral leads are also involved...lat Q or ST-T abnormalities
== END 2022-08-16 15:56 | disposition home or self-care (01) ==
LOC: DI.KIM 15:56
PROVIDERS: PCP Family Medicine; Visit Provider Family Medicine
DX: R07.9 Chest pain, unspecified (principal)
CPT/HCPCS: 93010

== ENCOUNTER 2023-07-31 14:02 | Inpatient (IN) | payer MEDICAID, SELFPAY ==
[2023-07-31] VITALS (54 sets, daily range): BP systolic 139–176; BP diastolic 67–128; PULSE 63–93; RESP 7–35; TEMP 36.5; O2SAT 90–98
--- NOTE | 2023-07-31 14:00 | RT.EKG_ITS ---
APPROVED REPORT Exam: Resting ECG Reason for Exam: Chest Pain Patient Location: E HR:79 bpm ECG Measurements Heart Rate 79 AXIS CO 151 P 73 QRSd 109 QRS 72 QT 343 T 68 QTc 393 Conclusion Sinus rhythm...normal P axis, V-rate 60- 99 Inferior infarct, old...Q >35mS, II III aVF
--- NOTE | 2023-07-31 14:15 | ED.GENADUL_ITS ---
Discharge Plan Disposition Patient Disposition: Admit to [facility] Condition: Stable Discharge Details Clinical Impression: Chest pain, Non-ST elevation LA (NSTEMI) Primary Care Provider: Milton Cameron ED Provider: Nathaniel He Home Meds and New Rx's Prescriptions: No Action naproxen sodium [Aleve] 220 mg tablet 220 mg PO BID PRN ibuprofen 200 mg capsule 200 mg PO TID-QID PRN Patient Comments: for frostbite and hammer injury to left hand (DME) [facility] Spacer See Rx Instructions .ROUTE .MEDSUPPLY Qty: 1 Rx Instructions: As directed ascorbic acid (vitamin C) 1,000 mg tablet 1 g PO Q6H polyethylene glycol 3350 [Miralax] 17 gram/dose powder 17 g PO DAILY albuterol sulfate [Ventolin HFA] 90 mcg/actuation HFA aerosol inhaler 2 puff inhalation Q4H PRN (Reason: shortness of breath or wheezing) Qty: 8.5 6RF acetaminophen [Acetaminophen Extra Strength] 500 mg Tablet 1,000 mg PO PRN PRN aspirin 81 mg tablet,chewable 81 mg PO DAILY Qty: 14 0RF HPI General Mode of arrival: ambulatory . Date/Time Provider Initiated Documentation: 07/31/23 14:03 . Limitations to Documentation: no limitations . Information obtained by: patient . History of Present Illness 57 year old M presents to the emergency department with the chief complaint of chest pain, described as moderate, Quality is described as aching, Patient started experiencing this day(s) (1) and it has been constant. Other factors that worsen symptoms (touching the right side of the chest and coughing) . Patient notes no other symptoms.. Patient did receive the following treatments prior to arrival, none Related Data Home Medications Medication Instructions Recorded Confirmed aspirin 81 mg chewable tablet 81 mg PO DAILY #14 tabs 04/30/18 07/31/23 naproxen sodium 220 mg tablet 220 mg PO BID PRN 05/21/18 07/31/23 (Aleve) ibuprofen 200 mg capsule 200 mg PO TID-QID PRN 07/17/18 07/31/23 acetaminophen 500 mg tablet 1,000 mg PO PRN PRN 07/24/18 07/31/23 (Acetaminophen Extra Strength) inhalational spacing device #1 ea 12/01/20 12/01/20 ([facility] spacer) ascorbic acid (vitamin C) 1,000 mg 1 g PO Q6H 09/06/21 07/31/23 tablet polyethylene glycol 3350 17 17 g PO DAILY 09/06/21 07/31/23 gram/dose oral powder (Miralax) albuterol sulfate 90 mcg/actuation 2 puff inhalation Q4H PRN 05/02/22 07/31/23 aerosol inhaler (Ventolin HFA) shortness of breath or wheezing #8.5 grams Previous Rx's Medication Instructions Recorded aspirin 81 mg chewable tablet 81 mg PO DAILY #14 tabs 04/30/18 albuterol sulfate 90 mcg/actuation 2 puff inhalation Q4H PRN 05/02/22 aerosol inhaler (Ventolin HFA) shortness of breath or wheezing #8.5 grams Allergies Allergy/AdvReac Type Severity Reaction Status Date / Time No Known Allergies Allergy Verified 07/31/23 14:09 General Stated Complaint: Chest Pain JEANNETTE: 2 Review of Systems All systems reviewed & are unremarkable except as noted in HPI and below Constitutional Constitutional: Denies chills, Denies fever(s) and Denies weakness Cardiovascular Cardiovascular: Denies dyspnea Respiratory Respiratory: Denies cough and Denies dyspnea Gastrointestinal Gastrointestinal: Denies abdominal pain, Denies nausea and Denies vomiting Musculoskeletal Musculoskeletal: Denies joint swelling Neurologic Neurologic: Denies weakness Exam Const General: no acute distress Orientation: alert [facility] Head: normal to inspection Ears: external ears normal General nose exam: external nose normal Mouth: moist mucous membranes Eyes General: appearance normal, both eyes and all related structures Neck Neck: normal visual inspection Chest Chest: no crepitus and tenderness Resp Effort & Inspection: normal respiratory effort and able to speak in complete sentences Auscultation: clear to auscultation bilaterally Cardio Jugular venous pressure: no JVD Rate: regular rate Heart Sounds: no murmurs GI Palpation: soft and nontender Skin General skin exam: no rashes or lesions noted Neuro General: patient alert and patient oriented x3 Extrem General: normal to inspection Psych Mental Status: mental status grossly normal Course Vital Signs Vital signs: Vital Signs Temperature 36.5 C 07/31/23 14:05 Pulse 82 07/31/23 14:05 Respiratory Rate 18 07/31/23 14:05 Blood Pressure 176/100 H 07/31/23 14:05 Pulse Oximetry 96 07/31/23 14:05 Temperature 36.5 C 07/31/23 14:05 Temperature Source Skin 07/31/23 14:05 Pulse 82 07/31/23 14:05 Respiratory Rate 18 07/31/23 14:05 Respiratory Effort Normal, Non-Labored 07/31/23 14:13 Respiratory Depth Normal 07/31/23 14:13 Respiratory Pattern Normal 07/31/23 14:13 Blood Pressure 176/100 H 07/31/23 14:05 Blood Pressure Position Sitting 07/31/23 14:05 Pulse Oximetry 96 07/31/23 14:05 Oxygen Delivery Method Room Air 07/31/23 14:05 Oxygen Flow Rate 0 07/31/23 14:05 Pain Level 3 07/31/23 14:05 Comment increases to 8-9/10 when coughing 07/31/23 14:05 Medical Decision Making 57-year-old male with a history of gout, smoker, who comes in with right-sided chest pain. He states that started yesterday when he was throwing a 100 pound propane tank above him. He states he immediately had some right-sided chest discomfort which is continued. He says it hurts when he touches the area or he coughs. No difficulty breathing, no fevers, no pain with ambulation. He appears well on exam speaking in full sentences, has reproducible tenderness over the sixth and seventh ribs in the lateral clavicular line. No crepitus, clear lung sounds, no murmur, no leg swelling or calf tenderness. Suspect musculoskeletal chest pain, will check a troponin as she has had symptoms for over 3 hours to exclude NSTEMI. Will also obtain chest x-ray to evaluate for possible pneumothorax. He is no significant tachycardia or hypoxia no evidence of DVT so doubt PE and no tearing back pain with equal peripheral pulses so doubt dissection Patient's x-ray unremarkable, surprisingly his troponin is positive at 150. Patient stable states he has no pain unless he coughs. Will order aspirin given he is pain-free other than coughing will hold on heparin for now. Will obtain d elta troponin. Will also obtain cta of the chest to evaluate for possible PE His imaging unremarkable, third troponin downtrending. Discussed case with mural painter Dr. Demarco at [facility], states patient should have a cath within 24 to 48 hours, they cant take him tonight but they said they reach out tomorrow that they will list him to take him for the cath. They did recommend Lovenox, ticagrelor 180mg now and then 90 mg twice daily tomorrow, along with aspirin, atorvastatin and metoprolol. patient remains pain free and has stable vitals. Will discuss with hospitalist about admission Differential Diagnosis Differential Diagnosis: Chest wall pain, rib contusion, pneumothorax Medical Records Medical records reviewed: Yes I reviewed the patient's medical records. Imaging Data Radiologic Study: Attestation: I personally reviewed and interpreted this imaging study as follows: Imaging: X-Ray Radiologist's impression: No acute findings Radiologic Study #2: Attestation: I personally reviewed and interpreted this imaging study as follows: Imaging: CT Scan Radiologist's impression: FINDINGS: Pulmonary Arteries: No evidence of filling defect to suggest pulmonary emboli. Tracheobronchial tree: No mucous plugging. Mediastinum and Stefania: No dominant adenopathy or fluid collection. Pulmonary parenchyma: Mildly limited evaluation due to respiratory motion. No consolidation or dominant measurable mass. Pleura: No effusion or pneumothorax. Heart: The heart is mildly dilated. No coronary artery calcifications are seen. Aorta: Thoracic aorta non-dilated. No dissection. Mild atherosclerotic changes. Upper abdomen: No acute findings. Bones: Unremarkable for age. Tubes, Catheters, and Lines: None Soft tissues: Unremarkable. IMPRESSION: No evidence of pulmonary embolism. No acute pulmonary process. Lab Data Lab results reviewed: Yes I reviewed the patient's lab results. ECG Data Attestation: I personally reviewed and interpreted this ECG (s) as follows: Prior ECG tracings: available for review Interpretation: Sinus rhythm, rate of 79, PA 151, no STEMI Quality:SDOH Health Related Social Needs: No Data to Display [facility] All Active Problems Non-ST elevation LA (NSTEMI) (Acute) NSTEMI (non-ST elevated myocardial infarction) (Acute) Chest pain (Acute) SARS-CoV-2 positive (Acute ~08/31/21) Asthma, mild intermittent (Acute) Nasal polyp (Acute) Right facial swelling (Acute) Gout (Chronic) Medical History Normal colonoscopy History of pneumothorax Gout Surgical History History of esophagogastroduodenoscopy (EGD) 07/24/[address] Becky Pinto [facility], normal, repeat in ten years. 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 Pets and animals: Yes Pets and animals: dog(s) Sexually active: No Do you think of yourself as: straight/heterosexual Current gender identity: male What is your relationship status?: never How often do you talk on the phone with friends or family?: once per week How often do you get together with friends or relatives?: once per week Do you belong to any clubs or organized social groups?: no Panel score (0-1 are the most socially isolated patients): 0 What type of physical activity do you participate in: occasional exercise Aleta/Orthodox: Baptist Seatbelt use: always Helmet use: Yes Drive intox or ride w/intox 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
[2023-07-31] MEDS: Lidocaine 5% Patch 1 PATCH TP (14:24)
[2023-07-31 14:44] LABS: Abs Immature Grans 0.03 10^3/uL (0.0-0.06); Absolute Basophil Count 0.06 10^3/uL (0.0-0.2); Absolute Eosinophil Count 0.24 10^3/uL (0.0-0.7); Absolute Lymphocyte Count 2.62 10^3/uL (1.2-3.4); Absolute Monocyte Count 0.94 10^3/uL (0.1-0.8); Basophils % 0.5; HCT 46.9 % (40.0-50.0); HGB 15.6 g/dL (13.5-17.5); Immature Grans % 0.2; Lymphocytes % 21.7; MCH 33.1 pg (27.0-33.0); MCHC 33.3 % (32.0-36.0); MCV 100 fL (80-95); MPV 9.1 fL (8.0-11.0); Monocytes % 7.8; Neutrophils % 67.8; Platelet Count 236 10^3/uL (130-400); RBC 4.71 10^6/uL (4.36-5.78); RDW-SD 48.2 fL; WBC 12.09 10^3/uL (4.4-10.8)
--- NOTE | 2023-07-31 14:50 | DI.RAD_ITS ---
Exam(s) XR CHEST 2V PA LATERAL EXAM: XR CHEST 2V PA LATERAL CLINICAL HISTORY: right sided chest pain TECHNIQUE: 2D digital imaging was performed. Two views. COMPARISON: CR XR CHEST 1V IN DI DEPT from 09/03/2021 FINDINGS: HEART: Normal size. Aorta: Not dilated. PULMONARY VASCULATURE: Normal. LUNGS: Clear. PLEURAL SPACE: No pleural effusion or pneumothorax. BONE:Unremarkable for age. Soft tissues: Unremarkable. IMPRESSION: No acute abnormality. DATA REPOSITORY: RADIATION DOSE DELIVERED:
[2023-07-31 14:56] LABS: ALT 30 U/L (16-63); AST 18 U/L (15-37); Albumin 3.6 g/dL (3.4-5.0); Alkaline Phosphatase 72 U/L (46-116); Anion Gap 8.1 mmol/L (3-11); BUN 15 mg/dL (7-18); Bilirubin, Total 0.4 mg/dL (0.2-1.0); CO2 28.9 mmol/L (21.0-32.0); CREATININE 0.9 mg/dL (0.70-1.30); Calcium 8.9 mg/dL (8.5-10.1); Chloride 104 mmol/L (98-107); Estimated GFR 98.38 (mL/min/1.73m2); Glucose 134 mg/dL (74-106); Magnesium 1.8 mg/dL (1.8-2.4); Sodium 141 mmol/L (136-145); Total Protein 7.5 g/dL (6.4-8.2)
[2023-07-31 15:00] LABS: Troponin I 156 ng/L (< or =60)
[2023-07-31] MEDS: Aspirin 325 MG TAB PO (15:45)
--- NOTE | 2023-07-31 17:45 | DI.CT_ITS ---
Exam(s) CT CHEST PE CTA EXAM: CT CHEST PE CTA CLINICAL HISTORY: right sided chest pain. TECHNIQUE: Imaging Protocol: Axial CT angiography was performed with multi-slice acquisition and mu lti-planar reconstructions as well as axial, coronal and sagittal MIP reconstructions. CONTRAST MATERIAL: Intravenous: Omnipaque 350 Contrast volume:100 ml COMPARISON: CT CT BRAIN NECK CTA from 09/03/2021 CR XR CHEST 2V PA LATERAL from 07/31/2023 FINDINGS: Pulmonary Arteries: No evidence of filling defect to suggest pulmonary emboli. Tracheobronchial tree: No mucous plugging. Mediastinum and Stefania: No dominant adenopathy or fluid collection. Pulmonary parenchyma: Mildly limited evaluation due to respiratory motion. No consolidation or domin ant measurable mass. Pleura: No effusion or pneumothorax. Heart: The heart is mildly dilated. No coronary artery calcifications are seen. Aorta: Thoracic aorta non-dilated. No dissection. Mild atherosclerotic changes. Upper abdomen: No acute findings. Bones: Unremarkable for age. Tubes, Catheters, and Lines: None Soft tissues: Unremarkable. IMPRESSION: No evidence of pulmonary embolism. No acute pulmonary process. RADIATION DOSE DELIVERED: Total DLP DATA REPOSITORY: All CT scans at this facility are submitted to the National Radiology Data Registry (NRDR) Dose Index Registry (DIR) with the [employer] (ACR). RADIATION OPTIMIZATION: All CT scans at this facility use at least one of these dose optimization te chniques: automated exposure control; mA and/or kV adjustment per patient size (includes targeted exa ms where dose is matched to clinical indication); or iterative reconstruction.
[2023-07-31 17:58] LABS: Troponin I 167 ng/L (< or =60)
[2023-07-31] MEDS: Normal Saline - Diluent 50 ML VIAL IJ (18:28)
[2023-07-31] MEDS: Omnipaque 350 MG/ML 100 ML BTL 75 ML IJ (18:28)
[2023-07-31] MEDS: Normal Saline Flush 10 ML SYR IVP (18:30)
[2023-07-31 19:36] LABS: Troponin I 164 ng/L (< or =60)
[2023-07-31] MEDS: Atorvastatin 40 MG TAB 80 MG PO (19:55)
[2023-07-31] MEDS: Ticagrelor 90 MG TAB 180 MG PO (19:56)
[2023-07-31] MEDS: Enoxaparin 80 MG/0.8 ML SYR SC (19:57)
--- NOTE | 2023-07-31 20:05 | W.PM.HP.N ---
Date of service: 07/31/23 Time of Service: 20:06 Assessment and Plan Assessment and plan (1) Atypical chest pain: Start date: 07/31/23 Status: Acute Assessment and plan: This is a 57-year-old gentleman who had sudden onset of right sided chest pain after lifting on a tank and has persistent pain with movement and deep inspiration as well as having productive sputum with cough. Troponins were elevated with Q waves in in the inferior leads which appear to be old. Because of patient's cardiovascular risk with undiagnosed hyperglycemia, but appears to be new onset hypertension and appearing to have MALGORZATA untreated with continued tobacco use, patient was initiated on non-STEMI protocol pending transfer to [facility] [place] for cardiac catheterization. Long-term he should work on his risk factors. Because of his productive sputum and lung findings though imaging negative, he will be placed on IV doxycycline. Patient is a full code. (2) NSTEMI (non-ST elevated myocardial infarction): Start date: 07/31/23 Status: Acute Assessment and plan: Elevated troponins which are trending down with normal sinus rhythm. Patient does have uncontrolled hypertension will be treated more aggressively with IV metoprolol. He was loaded with aspirin though on a baby aspirin daily previously and loaded with Brilinta with continuing treatment twice daily. Metoprolol will be advanced to control blood pressure watching for bradycardia. Patient is pending transfer for cardiac catheterization. (3) HTN (hypertension): Status: Acute Assessment and plan: Initiate metoprolol orally and IV for better control. Long-term patient needs to lose weight and work on better control of his blood pressure. Qualifiers: Hypertension type: primary hypertension Qualified Code(s): I10 - Essential (primary) hypertension (4) Bronchitis: Start date: 07/31/23 Status: Acute Assessment and plan: In a smoker with pleuritic type chest pain with negative imaging. Patient will be placed on doxycycline IV and respiratory treatments as tolerated. He is not tachycardic. He does smoke tobacco half a pack daily but would not be placed on nicotine because of the question of non-STEMI. History of Present Illness History of Present Illness Chief Complaint: Right chest pain Narrative: This is a 57-year-old male patient who is on mostly inhalers smoking 1/2 pack/day and anti-inflammatories for body aches who presented to the ED after a 2-day history of right pleuritic type chest pain which is worse with deep breathing and cough. He does also have production of sputum. In the ED he was evaluated for chest pain and was found to have elevated troponins which was slightly rising and had trended downward since initiating Lovenox at therapeutic dosing along with low-dose of aspirin with the patient already being on a baby aspirin daily and Brilinta with loading dose and then continuation. This was at the recommendation of the [facility] cardiology who will be taking the patient in transfer for cardiac catheterization. Imaging did not reveal any PE or pneumonic process. Patient does have a history of asthma and probably has asthma with COPD with his continued tobacco use. He denies any fever or chills. His chest pain began after lifting a propane tank 2 days prior to admission and persisted mostly with deep breathing and coughing. He has never had a coronary event and admits he may have high blood pressure which is untreated. He is overweight. He has not been diagnosed with sleep apnea but has the physical appearance of sleep apnea. The patient's right chest discomfort persist despite the above treatments and he is producing slightly purulent sputum without blood. He is overweight but denies having diabetes. As stated he looks like he has sleep apnea but has not been evaluated for this problem. He is a full code. Review of Systems Narrative: 13 point review of systems otherwise unrevealing or stable. PFSH All Active Problems (Updated 08/01/23 @ 06:33 by Joey Fulton) HTN (hypertension) (Acute) Bronchitis (Acute) Atypical chest pain (Acute) Non-ST elevation DE (NSTEMI) (Acute) NSTEMI (non-ST elevated myocardial infarction) (Acute) Chest pain (Acute) SARS-CoV-2 positive (Acute ~08/31/21) Asthma, mild intermittent (Acute) Nasal polyp (Acute) Right facial swelling (Acute) Gout (Chronic) Medical History Normal colonoscopy History of pneumothorax Gout Surgical History History of esophagogastroduodenoscopy (EGD) 07/24/[address] Becky Pinto, [facility], normal, repeat in ten years. 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 Pets and animals: Yes Pets and animals: dog(s) Sexually active: No Do you think of yourself as: straight/heterosexual Current gender identity: male What is your relationship status?: never How often do you talk on the phone with friends or family?: once per week How often do you get together with friends or relatives?: once per week Do you belong to any clubs or organized social groups?: no Panel score (0-1 are the most socially isolated patients): 0 What type of physical activity do you participate in: occasional exercise Aleta/Mandaen: Mandaeism Seatbelt use: always Helmet use: Yes Drive intox or ride w/intox 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 Water heater temp set <120 deg: Yes Working smoke detector in home: Yes Fire extinguisher in home: Yes Carbon monox detector in home: Yes Do you feel safe at home: Yes Do you feel safe in your relationship?: Yes Meds Allergies and Home Medications Allergies Allergy/AdvReac Type Severity Reaction Status Date / Time No Known Allergies Allergy Verified 07/31/23 14:09 Home Medications Medication Instructions Recorded Confirmed Type aspirin 81 mg chewable tablet 81 mg PO DAILY #14 tabs 04/30/18 07/31/23 Rx naproxen sodium 220 mg tablet 220 mg PO BID PRN 05/21/18 07/31/23 History (Aleve) ibuprofen 200 mg capsule 200 mg PO TID-QID PRN 07/17/18 07/31/23 History acetaminophen 500 mg tablet 1,000 mg PO PRN PRN 07/24/18 07/31/23 History (Acetaminophen Extra Strength) inhalational spacing device #1 ea 12/01/20 12/01/20 History (Beti Couch [facility] spacer) ascorbic acid (vitamin C) 1,000 mg 1 g PO Q6H 09/06/21 07/31/23 History tablet polyethylene glycol 3350 17 17 g PO DAILY 09/06/21 07/31/23 History gram/dose oral powder (Miralax) albuterol sulfate 90 mcg/actuation 2 puff inhalation Q4H PRN 05/02/22 07/31/23 Rx aerosol inhaler (Ventolin HFA) shortness of breath or wheezing #8.5 grams Exam Narrative Exam Narrative: General: Patient appears older than stated age, morbidly obese but also mesomorphic. Alert and oriented x 3 and in no acute distress. HEENT: Normocephalic, coarsened facial features, right eye with pupil round and reactive with patient having left eye prosthesis. Extraocular movement intact and right eyes sclera anicteric. Oropharynx with poor dentition and missing teeth and discoloration with slightly dry oral mucosa. Neck: Supple without JVD. Back: Supervised without CVA tenderness. Lungs: Bronchovesicular breath sounds diffusely with slight increased expiratory phase especially of the right lung field with inspiratory coarse crackles none focalizing. Slight expiratory wheeze right lungs with left lungs clear. Fair aeration. Heart: Distant heart sounds with regular rate and rhythm and no peripheral murmur or gallop. Abdomen: Obese contour, soft and nontender to palpation without palpable hepatosplenomegaly. Bowel sounds positive all quadrants. Genitalia/rectal: Exam deferred. Extremities: Without clubbing, cyanosis or pitting edema. 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 Good capillary refill. Skin: Tanned, otherwise normal color, warm and dry. Neuro: Cranial nerves II through XII gross intact, no focalizing motor deficits and no tremor. Psych: Normal affect and mood. No abnormal thought processes. Remote and recent memory grossly intact. Results Imaging Imaging Studies: EXAM: CT CHEST PE CTA CLINICAL HISTORY: right sided chest pain. TECHNIQUE: Imaging Protocol: Axial CT angiography was performed with multi-slice acquisition and multi-planar reconstructions as well as axial, coronal and sagittal MIP reconstructions. CONTRAST MATERIAL: Intravenous: Omnipaque 350 Contrast volume:100 ml COMPARISON: CT CT BRAIN NECK CTA from 09/03/2021 CR XR CHEST 2V PA LATERAL from 07/31/2023 FINDINGS: Pulmonary Arteries: No evidence of filling defect to suggest pulmonary emboli. Tracheobronchial tree: No mucous plugging. Mediastinum and Stefania: No dominant adenopathy or fluid collection. Pulmonary parenchyma: Mildly limited evaluation due to respiratory motion. No consolidation or dominant measurable mass. Pleura: No effusion or pneumothorax. Heart: The heart is mildly dilated. No coronary artery calcifications are seen. Aorta: Thoracic aorta non-dilated. No dissection. Mild atherosclerotic changes. Upper abdomen: No acute findings. Bones: Unremarkable for age. Tubes, Catheters, and Lines: None Soft tissues: Unremarkable. IMPRESSION: No evidence of pulmonary embolism. No acute pulmonary process. EXAM: XR CHEST 2V PA LATERAL CLINICAL HISTORY: right sided chest pain TECHNIQUE: 2D digital imaging was performed. Two views. COMPARISON: CR XR CHEST 1V IN DI DEPT from 09/03/2021 FINDINGS: HEART: Normal size. Aorta: Not dilated. PULMONARY VASCULATURE: Normal. LUNGS: Clear. PLEURAL SPACE: No pleural effusion or pneumothorax. BONE:Unremarkable for age. Soft tissues: Unremarkable. IMPRESSION: No acute abnormality. Labs 08/01/23 05:49 07/31/23 14:27 Labs: Laboratory Results - last 24 hr 07/31/23 07/31/23 07/31/23 14:27 14:27 14:27 WBC 12.09 H RBC 4.71 Hgb 15.6 Hct 46.9 MCV 100 H MCH 33.1 H MCHC 33.3 RDW 13.0 Plt Count 236 MPV 9.1 Immature Gran % 0.2 Neutrophils % 67.8 Lymphocytes % 21.7 Monocytes % 7.8 Eosinophils % 2.0 Basophils % 0.5 Nucleated RBC % 0.0 Absolute Neutrophils 8.20 H Absolute Lymphocytes 2.62 Absolute Monocytes 0.94 H Absolute Eosinophils 0.24 Absolute Basophils 0.06 Sodium Cancelled 141 Potassium Cancelled 4.0 Chloride Cancelled Carbon Dioxide Anion Gap BUN Creatinine Est GFR (CKD-EPI 2020) Glucose Calcium Magnesium Total Bilirubin AST ALT Alkaline Phosphatase Troponin I Total Protein Albumin 07/31/23 07/31/23 07/31/23 14:27 14:27 14:27 WBC RBC Hgb Hct MCV MCH MCHC RDW Plt Count MPV Immature Gran % Neutrophils % Lymphocytes % Monocytes % Eosinophils % Basophils % Nucleated RBC % Absolute Neutrophils Absolute Lymphocytes Absolute Monocytes Absolute Eosinophils Absolute Basophils Sodium Potassium Chloride 104 Carbon Dioxide Cancelled .9 Anion Gap Cancelled 8.1 BUN Cancelled Creatinine Est GFR (CKD-EPI 2020) Glucose Calcium Magnesium Total Bilirubin AST ALT Alkaline Phosphatase Troponin I Total Protein Albumin 07/31/23 07/31/23 07/31/23 14:27 14:27 14:27 WBC RBC Hgb Hct MCV MCH MCHC RDW Plt Count MPV Immature Gran % Neutrophils % Lymphocytes % Monocytes % Eosinophils % Basophils % Nucleated RBC % Absolute Neutrophils Absolute Lymphocytes Absolute Monocytes Absolute Eosinophils Absolute Basophils Sodium Potassium Chloride Carbon Dioxide Anion Gap BUN 15 Creatinine Cancelled 0.9 Est GFR (CKD-EPI 2020) Cancelled 98.38 Glucose Cancelled Calcium Magnesium Total Bilirubin AST ALT Alkaline Phosphatase Troponin I Total Protein Albumin 07/31/23 07/31/23 07/31/23 14:27 14:27 14:27 WBC RBC Hgb Hct MCV MCH MCHC RDW Plt Count MPV Immature Gran % Neutrophils % Lymphocytes % Monocytes % Eosinophils % Basophils % Nucleated RBC % Absolute Neutrophils Absolute Lymphocytes Absolute Monocytes Absolute Eosinophils Absolute Basophils Sodium Potassium Chloride Carbon Dioxide Anion Gap BUN Creatinine Est GFR (CKDEPI 2020) Glucose 134 H Calcium Cancelled 8.9 Magnesium 1.8 Total Bilirubin Cancelled 0.4 AST Cancelled ALT Alkaline Phosphatase Troponin I Total Protein Albumin 07/31/23 07/31/23 07/31/23 14:27 14:27 14:27 WBC RBC Hgb Hct MCV MCH MCHC RDW Plt Count MPV Immature Gran % Neutrophils % Lymphocytes % Monocytes % Eosinophils % Basophils % Nucleated RBC % Absolute Neutrophils Absolute Lymphocytes Absolute Monocytes Absolute Eosinophils Absolute Basophils Sodium Potassium Chloride Carbon Dioxide Anion Gap BUN Creatinine Est GFR (CKD-EPI 2020) Glucose Calcium Magnesium Total Bilirubin AST 18 ALT Cancelled 30 Alkaline Phosphatase Cancelled 72 Troponin I 156 H* Total Protein Cancelled Albumin 07/31/23 07/31/23 07/31/23 14:27 14:27 17:25 WBC RBC Hgb Hct MCV MCH MCHC RDW Plt Count MPV Immature Gran % Neutrophils % Lymphocytes % Monocytes % Eosinophils % Basophils % Nucleated RBC % Absolute Neutrophils Absolute Lymphocytes Absolute Monocytes Absolute Eosinophils Absolute Basophils Sodium Potassium Chloride Carbon Dioxide Anion Gap BUN Creatinine Est GFR (CKD-EPI 2020) Glucose Calcium Magnesium Total Bilirubin AST ALT Alkaline Phosphatase Troponin I 167 H* Total Protein 7.5 Albumin Cancelled 3.6 07/31/23 19:04 WBC RBC Hgb Hct MCV MCH MCHC RDW Plt Count MPV Immature Gran % Neutrophils % Lymphocytes % Monocytes % Eosinophils % Basophils % Nucleated RBC % Absolute Neutrophils Absolute Lymphocytes Absolute Monocytes Absolute Eosinophils Absolute Basophils Sodium Potassium Chloride Carbon Dioxide Anion Gap BUN Creatinine Est GFR (CKD-EPI 2020) Glucose Calcium Magnesium Total Bilirubin AST ALT Alkaline Phosphatase Troponin I 164 H* Total Protein Albumin Last Vital Signs Temp 36.5 C 07/31/23 14:05 Pulse 81 07/31/23 19:00 Resp 18 07/31/23 19:01 BP 139/95 H 07/31/23 19:00 Pulse Ox 96 07/31/23 19:01 Time Spent Time spent with Patient: >75 minutes Time was spent: preparing to see the patient(eg.review tests), obtaining and/or reviewing separately otained hiistory, ordering medications,tests, procedures, referring, communicating with other health manager of care, indepentently interpreting results, counseling the patient and care coordination
[2023-07-31] MEDS: Metoprolol CR 25 MG TABCR PO (20:07)
[2023-07-31 22:20] LABS: INR 1.1 (0.9-1.1)
[2023-08-01] VITALS (72 sets, daily range): BP systolic 99–175; BP diastolic 65–114; PULSE 59–92; RESP 13–32; TEMP 35.9–37.1; O2SAT 89–99
[2023-08-01 00:27] LABS: Troponin I 152 ng/L (< or =60)
[2023-08-01 05:54] LABS: HCT 47.9 % (40.0-50.0); HGB 16.1 g/dL (13.5-17.5); MCH 33.3 pg (27.0-33.0); MCHC 33.6 % (32.0-36.0); MCV 99 fL (80-95); Platelet Count 221 10^3/uL (130-400); RBC 4.83 10^6/uL (4.36-5.78); RDW 13.1 % (11.8-14.1); RDW-SD 48.1 fL; WBC 11.57 10^3/uL (4.4-10.8)
[2023-08-01 06:21] LABS: Troponin I 155 ng/L (< or =60)
[2023-08-01 06:26] LABS: ALT 30 U/L (16-63); AST 20 U/L (15-37); Albumin 3.5 g/dL (3.4-5.0); Alkaline Phosphatase 75 U/L (46-116); Anion Gap 8.7 mmol/L (3-11); BUN 13 mg/dL (7-18); CO2 29.3 mmol/L (21.0-32.0); CREATININE 0.9 mg/dL (0.70-1.30); Calcium 9.2 mg/dL (8.5-10.1); Chloride 103 mmol/L (98-107); Estimated GFR 98.38 (mL/min/1.73m2); Glucose 163 mg/dL (74-106); Magnesium 1.9 mg/dL (1.8-2.4); Potassium 4.6 mmol/L (3.5-5.1); Sodium 141 mmol/L (136-145); TSH (W/Ref FT4) 1.27 uIU/mL (0.36-3.74); Total Protein 7.4 g/dL (6.4-8.2)
[2023-08-01] MEDS: Metoprolol 5 MG/5 ML VIAL IVP (06:42)
[2023-08-01] MEDS: Ticagrelor 90 MG TAB PO ×2 (07:47→19:57)
[2023-08-01] MEDS: Aspirin 81 MG CHEW PO (07:47)
[2023-08-01] MEDS: Metoprolol 25 MG TAB PO ×2 (07:47→16:58)
[2023-08-01 08:07] LABS: Lab Add On Test DONE
[2023-08-01] MEDS: DOXYCYCLINE 100 MG in Normal Saline 100 ML IVPB ×2 (08:18→17:29)
[2023-08-01 08:25] LABS: Calculated LDL 152 mg/dL (<100); Cholesterol 250 mg/dL (<200); HDL Cholesterol 38 mg/dL (40-60); Triglyceride 304 mg/dL (<150)
[2023-08-01 08:56] LABS: Hemoglobin A1C 7.9 % (<5.7)
[2023-08-01] MEDS: Enoxaparin 80 MG/0.8 ML SYR SC ×2 (09:05→19:57)
[2023-08-01] MEDS: Ascorbic Acid 500 MG TAB 1000 MG PO ×3 (09:56→19:57)
[2023-08-01] MEDS: Polyethylene Glycol 3350 17 GM PACKET PO (09:57)
[2023-08-01] MEDS: Normal Saline Flush 10 ML SYR IVP ×2 (09:57→21:30)
[2023-08-01] MEDS: Albuterol HFA 8 GM 60 PUFF INH IH (14:00)
--- NOTE | 2023-08-01 16:00 | RT.EKG_ITS ---
APPROVED REPORT Exam: Resting ECG Reason for Exam: elevated troponin Patient Location: I HR:72 bpm ECG Measurements Heart Rate 72 AXIS WV 145 P 73 QRSd 107 QRS -60 QT 468 T 91 QTc 513 Conclusion Sinus rhythm...normal P axis, V-rate 50- 99 Inferior infarct, old...Q >35mS, II III aVF Prolonged QT interval...QTc >500mS
--- NOTE | 2023-08-01 16:14 | W.PM.PROGNOT ---
Date of Service Date of service: 08/01/23 Time of Service: 16:14 Assessment and Plan Assessment and plan (1) Atypical chest pain: Start date: 07/31/23 Status: Acute Assessment and plan: CP was atypical in that it was reproducible yesterday but has since left him. However the fact that he has evidence of prior inferior infarct on his ECG and that he has elevated troponin, albeit now plateaued, he should have a cardiac cath prior to being discharged home. I called [facility] transfer center says that they have no bed capacity and do not anticipate any bed capacity over the weekend. I did speak w/ a cardiology manager, who agrees w/ current management of his NSTEMI w/ ASA, Brilinta, lovenox and to try to arrange transfer to a tertiary center where cardiac cath can be done. (2) NSTEMI (non-ST elevated myocardial infarction): Start date: 07/31/23 Status: Acute Assessment and plan: as above (3) HTN (hypertension): Status: Acute Assessment and plan: treat HTN and ischemia w/ oral BB Qualifiers: Hypertension type: primary hypertension Qualified Code(s): I10 - Essential (primary) hypertension (4) Bronchitis: Start date: 07/31/23 Status: Acute Assessment and plan: In a smoker with pleuritic type chest pain with negative imaging. Patient will be placed on doxycycline IV and respiratory treatments as tolerated. He is not tachycardic. He does smoke tobacco half a pack daily but would not be placed on nicotine because of the question of non-STEMI. Subjective Subjective Interval history since last seen: Vijay denies any chest pain or pressure or dyspnea today. he presented w right sided CP yesterday after acute onset the day before while lifting 100 lb tank of propane. He says that the chest wall on the right was so sore as to not be able to touch it. However, he did have elevated troponin levels which have plateaued in the 150's. Serial EKG have been done and he has evidence of inferior AR w/ prominent Q waves in limb leads II, III, aVF. he also has subtle ST-T abnormalities in precordial leads. Exam Narrative Exam Narrative: Obese white male who is in no acute distress, respirations are non labored. Able to talk in complete paragraphs LUngs: clear, prolonged expiratory phase Chest wall nontender to palpation either on the right nor on the left Heart RRR, no m, r, g Abdomen: benign Extremities: no c/c/e Objective Last Vital Signs Temp 35.9 C L 08/01/23 14:52 Pulse 81 08/01/23 14:52 Resp 18 08/01/23 14:52 BP 111/72 08/01/23 14:52 Pulse Ox 94 08/01/23 14:52 Laboratory Results - last 24 hr 07/31/23 07/31/23 07/31/23 17:25 19:04 22:05 WBC RBC Hgb Hct MCV MCH MCHC RDW Plt Count MPV PT 11.0 INR 1.1 Sodium Potassium Chloride Carbon Dioxide Anion Gap BUN Creatinine Est GFR (CKD-EPI 2020) Glucose Hemoglobin A1c Calcium Magnesium Total Bilirubin AST ALT Alkaline Phosphatase Troponin I 167 H* 164 H* Total Protein Albumin Triglycerides Total Cholesterol LDL Cholesterol, Calc HDL Cholesterol TSH Add-On Test Request 07/31/23 08/01/23 23:57 05:49 WBC 11.57 H RBC 4.83 Hgb 16.1 Hct 47.9 MCV 99 H MCH 33.3 H MCHC 33.6 RDW 13.1 Plt Count 221 MPV 9.0 PT INR Sodium 141 Potassium 4.6 Chloride 103 Carbon Dioxide 29.3 Anion Gap 8.7 BUN 13 Creatinine 0.9 Est GFR (CKD-EPI 2020) 98.38 Glucose 163 H Hemoglobin A1c 7.9 H Calcium 9.2 Magnesium 1.9 Total Bilirubin 1.0 AST 20 ALT 30 Alkaline Phosphatase 75 Troponin I 152 H* 155 H* Total Protein 7.4 Albumin 3.5 Triglycerides 304 H Total Cholesterol 250 H LDL Cholesterol, Calc 152 H HDL Cholesterol 38 L TSH 1.27 Add-On Test Request DONE Time Spent with Patient Time Spent with Patient: >50 minutes Time was spent: preparing to see the patient(eg.review tests), obtaining and/or reviewing separately otained hiistory, ordering medications,tests, procedures, referring, communicating with other health healthcare prof, indepentently interpreting results, counseling the patient and care coordination
--- NOTE | 2023-08-01 19:35 | W.POCUS ---
Pocus Exam Limited Cardiac Exam DATE OF EXAM: 08/01/23 TIME OF EXAM: 17:15 PROVIDER THAT PERFORMED THE STUDY: Troy Madden REASON FOR EXAM: VT VISUALIZED STRUCTURES: four chambers, LVOT, aortic valve, mitral valve, Interventricular septum and IVC VIEW OBTAINED: Apical 4-Chamber, Parasternal long-axis, Parasternal short-axis (poor images of PSAX) and Subxiphoid PERTINENT FINDINGS/IMPRESSION: LV dysfunction :mild (global hypokinesis) and Plethoric IVC; no IVC inspiratory collapsability, No pericardial effusion and No RV dilation Exam complete
[2023-08-01] MEDS: Atorvastatin 40 MG TAB 80 MG PO (19:57)
[2023-08-02 00:01] VITALS: BP 122/97; PULSE 79; RESP 18; TEMP 36.2; O2SAT 94
[2023-08-02] MEDS: Metoprolol 25 MG TAB PO ×2 (01:10→09:35)
[2023-08-02] MEDS: Ascorbic Acid 500 MG TAB 1000 MG PO ×3 (01:10→13:41)
[2023-08-02 03:20] VITALS: BP 120/84; PULSE 63; RESP 18; TEMP 35.9; O2SAT 95
[2023-08-02 06:12] LABS: Troponin I 139 ng/L (< or =60)
[2023-08-02] MEDS: DOXYCYCLINE 100 MG in Normal Saline 100 ML IVPB (06:32)
[2023-08-02 07:17] VITALS: BP 113/72; PULSE 75; RESP 18; TEMP 35.9; O2SAT 95
[2023-08-02] MEDS: Polyethylene Glycol 3350 17 GM PACKET PO (08:06)
[2023-08-02] MEDS: Aspirin 81 MG CHEW PO (08:06)
[2023-08-02] MEDS: Enoxaparin 80 MG/0.8 ML SYR SC (08:06)
[2023-08-02] MEDS: Normal Saline Flush 10 ML SYR IVP (08:07)
[2023-08-02] MEDS: Ticagrelor 90 MG TAB PO (08:08)
--- NOTE | 2023-08-02 08:45 | PDOC.CMIN ---
Date of service: 08/02/23 Time of Service: 08:45 Care Management Initial Assmt Initial Assessment REASON FOR HOSPITALIZATION:: atypical chest pain PREVIOUS FUNCTIONAL STATUS/SOCIAL/FAMILY SUPPORTS:: Ramses lives in a mobile home [place] with his roommate. He has one child, a daughter, who lives locally and with whom he is very close. 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 Ramses is independent at baseline and does not receive any community services. CURRENT FUNCTIONAL STATUS:: Ramses was sitting up in a chair when CM met with him. He had just been told that he has a bed at [facility] and that transport will be arranged. When asked, Ramses was unable to determine whether or not he has insurance. He recalls signing up for [employer] some years ago but is not sure exactly what, if any, coverage he has. He shared that he has not received any medical bills, but then he has not been ill either. CM discussed the Patient Financial Assistance program at [facility] and provided Ramses with forms. CM also provided a brochure for [employer] in case Ramses learns he does not have coverage. ADVANCE DIRECTIVES:: none on file Has patient been provided with info about the portal/API?: Yes Did the patient sign up for the portal?: No CODE STATUS:: Full Code INSURANCE COVERAGE / FINANCIAL ISSUES:: self pay PRIMARY CARE PHYSICIAN:: Milton Cameron POTENTIAL DISCHARGE NEEDS:: follow up with cardiology PATIENT/FAMILY EDUCATION NEEDS:: Review of discharge instructions, activity, limitations, diet, medications, follow up plan, discuss Ask Me Three ANTICIPATED BARRIERS TO DISCHARGE:: bed availability TRANSPORTATION:: via EMS coordinated by nursing transportation maintenance supervisor PLAN:: Vijay is awaiting transfer to a tertiary care facility for a cardiac catheterization. He will transport via EMS when a bed becomes available. CM will follow. PFSH All Active Problems (Updated 08/02/23 @ 13:51 by Troy Madden MD) Diabetes mellitus type 2, controlled, without complications (Acute) HTN (hypertension) (Acute) Atypical chest pain (Acute) Non-ST elevation [place] (NSTEMI) (Acute) NSTEMI (non-ST elevated myocardial infarction) (Acute) Chest pain (Acute) SARS-CoV-2 positive (Acute ~08/31/21) Asthma, mild intermittent (Acute) Nasal polyp (Acute) Right facial swelling (Acute) Gout (Chronic) Medical History Normal colonoscopy History of pneumothorax Gout Surgical History History of esophagogastroduodenoscopy (EGD) 07/24/[address] Becky Pinto, [facility], normal, repeat in ten years. 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 Pets and animals: Yes Pets and animals: dog(s) Sexually active: No Do you think of yourself as: straight/heterosexual Current gender identity: male What is your relationship status?: never How often do you talk on the phone with friends or family?: once per week How often do you get together with friends or relatives?: once per week Do you belong to any clubs or organized social groups?: no Panel score (0-1 are the most socially isolated patients): 0 What type of physical activity do you participate in: occasional exercise Aleta/Buddhism: Lutheran Seatbelt use: always Helmet use: Yes Drive intox or ride w/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 Water heater temp set <120 deg: Yes Working smoke detector in home: Yes Fire extinguisher in home: Yes Carbon monox detector in home: Yes Do you feel safe at home: Yes Do you feel safe in your relationship?: Yes SDOH(Care Management) Screening Will the Patient Participate in the Screening?: Yes Do you worry about having a steady place to live?: no Problems where you live: no known problems In the past 12 months, have you had to go without electric, gas, oil or water in your home?: no Have you or anyone in your house had to go without enough food to eat?: no Has lack of transportation kept you from medical appointments or from doing things needed for daily living?: yes Has anyone in your support network made you feel unsafe for any reason?: no Health Related Social Needs Health related social needs: transportation insecurity(Z59.82)
--- NOTE | 2023-08-02 08:55 | PGE_ITS ---
Date of Service Date of service: 08/02/23 Time of Service: 08:55 Assessment and Plan Assessment and plan (1) NSTEMI (non-ST elevated myocardial infarction): Start date: 07/31/23 Status: Acute Assessment and plan: Troponin I level peaked at 167 on 07/31/2023 and is since declined down to 139 this morning. Patient is remained free of any chest pain or pressure. Probably can decrease the dose of his metoprolol. Continue dual antiplatelet therapy with aspirin and Brilinta. Discontinue enoxaparin and begin systemic heparin this evening 12 hours after the last dose of enoxaparin which was given at 8 AM this morning. Plan for transfer to [facility] later this weekend. Continue high-dose atorvastatin (2) HTN (hypertension): Status: Acute Assessment and plan: Continue beta-blockers but at a reduced dose. Qualifiers: Hypertension type: primary hypertension Qualified Code(s): I10 - Essential (primary) hypertension (3) Bronchitis: Start date: 07/31/23 Status: Acute Assessment and plan: In a smoker with pleuritic type chest pain with negative imaging. Patient will be placed on doxycycline IV and respiratory treatments as tolerated. He is not tachycardic. He does smoke tobacco half a pack daily but would not be placed on nicotine because of the question of non-STEMI. Can probably be switched to oral doxycycline at this point Subjective Subjective Interval history since last seen: Vijay has had no further chest pain, no dyspnea, no dizziness. Last night he says that he was restless and nursing noted his oxygen staturation to drop during his sleep. Reportedly he was bradycardic into the 50's. I reviewed his telemetry w/ ICU nursing who monitor the floor telemetry and his lowest was 56 bpm. However patient was started on metoprolol on admission. I told him that I called [facility] and have an accepting provider, Dr. Joey Cruz who wants him off lovenox and on heparin. I told Vijay that I did not know exactly when he would transfer to [facility] but it would happen this weekend and he will have a heart cath on Friday. Exam Narrative Exam Narrative: Vijay is sitting up in his chair eating breakfast he is alert and orient x 3 no acute distress not dyspneic not having any chest pain Neck without JVD Lungs are clear to auscultation with prolonged expiratory phase no rhonchi or rales or wheezes Heart is regular without appreciable murmur rub or gallop Abdomen obese soft and nontender Extremities without peripheral cyanosis or edema Objective Last Vital Signs Temp 35.9 C L 08/02/23 07:17 Pulse 75 08/02/23 07:17 Resp 18 08/02/23 07:17 BP 113/72 08/02/23 07:17 Pulse Ox 95 08/02/23 07:17 Laboratory Results - last 24 hr 08/01/23 08/02/23 05:49 05:10 Hemoglobin A1c 7.9 H Troponin I 139 H* Time Spent with Patient Time Spent with Patient: 35-49 minutes Time was spent: preparing to see the patient(eg.review tests), ordering medications,tests, procedures, referring, communicating with other health critical care unit manager (Calls to [facility] and discussion with Dr. Cruz), indepentently interpreting results, counseling the patient and care coordination
[2023-08-02 11:20] VITALS: BP 98/81; PULSE 69; RESP 18; TEMP 36.8; O2SAT 95
[2023-08-02 11:25] VITALS: BP 108/82
[2023-08-02 12:32] LABS: PTT Activated 31.2 sec (23.6-32.8)
--- NOTE | 2023-08-02 13:20 | W.PM.DS.N ---
Date of service: 08/02/23 Time of Service: 13:20 DS: Diagnosis Discharge Diagnosis (1) NSTEMI (non-ST elevated myocardial infarction): Status: Acute Asessment and Plan: See admission H&P and emergency room notes for details of patient's presenting symptoms and findings. In summary this 57-year-old male smoker with history of hypertension not currently being medicated presented with acute chest pain that began the day before presentation to the emergency dept on 07/31/23 occurring while lifting 100 lb propane tank. CP right sided. Initially reported as painful chest wall w/ palpation. When his chest pain continued into the next day, he presented to the emergency room. Workup in the ED demonstrated normal sinus rhythm inferior Q waves consistent w/ old infarct ( seen on prior ECG from 08/16/22) but w/ some nonspecific ST-T changes in the anterior leads which were new compared to 08/16/22. His troponin I level was elevated at 156 ng/L and peaked at 167 before declining to 139 at the time of discharge. The [facility] ED provider contacted [facility] [place], Dr. Demarco, who recommended DAPT w/ Brilinta and aspirin, high dose atorvastatin and admission while checking serial troponin, get echo and Dr. Demarco indicated that the patient needed cardiac cath within the next 24 to 48 hours. Unfortunately [facility] [place] at their bed capacity and could not take the patient in transfer so patient was admitted to [facility]. The next day [facility] was called twice and again they did not have ability to accept the patient in transfer either in the morning nor the afternoon and indicated that they would not be able to accept the patient over the weekend. At this point, [facility] transfer center was called by myself and I discussed the patient's case w/ Dr. Joey Cruz who reviewed the case w/ me and reviewed the EKG's and agreed that patient should have a heart cath while an inpatient. He graciously accepted the patient for transfer as an urgent transfer to occur over the weekend for heart cath on Friday. [facility] transfer called for the patient on 08/02/23. Patient is transferred in stable medical condition, currently free of any chest pain. Formal Echo was not obtained as it was expected that the patient was going to [facility] [place]. By the time it was learned that transfer would not happen it was too late to get formal echo. Bedside POCUS was done and he was found to have global hypokinesis of mild to moderate degree. Follow up echo will be done on transfer to [facility] (2) HTN (hypertension): Status: Acute Asessment and Plan: patient presenting BP were 176/100 to 160/90. He was begun on metoprolol 25 mg tid however, this brought his BP down into the high 90's to low 100's and his metoprolol dose had to be held. He also had sinus bradycardia while sleeping w/ low of 56 bpm. (3) Bronchitis: Status: Suspected Asessment and Plan: patiient reported recent cough although has not been productive. The admitting hand inspector started the patient on bronchodilators and doxycycline. The patient had CT chest w/ contrast per P.E. protocol. No P.E. was seen and no infiltrates were seen. He had no pleural effusions nor signs of CHF on his CT scan. (4) Diabetes mellitus type 2, controlled, without complications: Status: Acute Asessment and Plan: patient was found to have hyperglycemia w/ lab glucose of 134 on admission labs. Glycohemoglobin A1C was checked and found to be elevated at 7.9%; patient will need to be started on treatment for DM prior to discharge home. Discharge Plan Disposition Patient Disposition: Transfer-Acute Inpatient Care Specific Acute Inpt Facility: [facility] Condition: Stable Discharge Details Reason For Visit: NSTEMI Admit Date/Time: 07/31/23 20:16 Admit Provider: Joey Fulton Attending Provider: Joey Fulton Primary Care Provider: Milton Cameron Home Meds and New Rx's Prescriptions: No Action naproxen sodium [Aleve] 220 mg tablet 220 mg PO BID PRN ibuprofen 200 mg capsule 200 mg PO TID-QID PRN Patient Comments: for frostbite and hammer injury to left hand (DME) [facility] Spacer See Rx Instructions .ROUTE .MEDSUPPLY Qty: 1 Rx Instructions: As directed ascorbic acid (vitamin C) 1,000 mg tablet 1 g PO Q6H polyethylene glycol 3350 [Miralax] 17 gram/dose powder 17 g PO DAILY albuterol sulfate [Ventolin HFA] 90 mcg/actuation HFA aerosol inhaler 2 puff inhalation Q4H PRN (Reason: shortness of breath or wheezing) Qty: 8.5 6RF acetaminophen [Acetaminophen Extra Strength] 500 mg Tablet 1,000 mg PO PRN PRN aspirin 81 mg tablet,chewable 81 mg PO DAILY Qty: 14 0RF Discharge Instructions Instructions: Heart Attack (DC), Heart Healthy Diet (DC) Referrals: Joey Cruz [ NON-[facility] STAFF PHYSICIAN] - Activity:: Activity as Tolerated Equipment/Supplies:: No Equipment Needed Diet:: Low Sodium DS: Summary Time Spent with Patient providing and/or coordinating discharge services: Greater than 30 minutes Specific discharge activities: Interview/exam of patient, educating patient and/or family about need for transfer and alternative treatment options, coordination of transfer w/ receiving facility and discussion of case w/ accepting provider(s), completion of transfer orders and discharge summary Status at Discharge Functional status at discharge: independent ambulation Overall status at discharge: patient is back to baseline Mental Status: mental status grossly normal Speech and Movement: speech and movement normal Mood: congruent mood Affect: normal affect Quality:SDOH Health Related Social Needs: Health related social needs transpo insecurity Quality: AMI Clinical Trial Participant: No Exam Narrative Exam Narrative: Vijay is sitting up in his chair eating breakfast he is alert and orient x 3 no acute distress not dyspneic not having any chest pain Neck without JVD Lungs are clear to auscultation with prolonged expiratory phase no rhonchi or rales or wheezes Heart is regular without appreciable murmur rub or gallop Abdomen obese soft and nontender Extremities without peripheral cyanosis or edema Psych Mental Status: mental status grossly normal Speech and Movement: speech and movement normal Mood: congruent mood Affect: normal affect DS: Data Vitals/I&O Vitals and I&O: Vital Signs Temperature 36.8 C 08/02/23 11:20 Temperature Source Tympanic 08/02/23 11:20 Pulse 69 08/02/23 11:20 Pulse Rhythm Irregular 08/02/23 08:15 Pulse 80 08/01/23 06:16 Respiratory Rate 18 08/02/23 11:20 Respiratory Effort Normal, Non-Labored 08/02/23 08:15 Respiratory Depth Normal 08/02/23 08:15 Respiratory Pattern Normal 08/02/23 08:15 Blood Pressure 108/82 08/02/23 11:25 Blood Pressure Mean 103 08/01/23 06:16 Blood Pressure Position Sitting 07/31/23 14:05 Pulse Oximetry 95 08/02/23 11:20 Oxygen Delivery Method Room Air 08/02/23 11:20 Oxygen Flow Rate 0 08/02/23 11:20 Pain Level 0 08/02/23 11:20 Comment increases to 8-9/10 when coughing 07/31/23 14:05 Intake & Output 08/01/23 08/02/23 08/02/23 23:59 11:59 23:59 Intake Total 560 / 840 110 / 110 Balance 560 / 840 110 / 110 Weight 85.729 kg Intake: IV 110 / 210 110 / 110 Oral 450 / 630 Other: Urine Color Pale Pale Yellow Yellow Urine Appearance Clear Clear Clear Urine Odor Normal Normal Comment per pt he has voided x3 pT states they voided recently Stool Size Moderate Stool Characteristics Liquid Brown Voiding Methods Toilet Toilet Toilet Data Completed and Pending Labs on day of discharge: Labs from last 24 hours 08/02/23 08/02/23 11:45 05:10 APTT 31.2 Troponin I 139 H* PFSH All Active Problems (Updated 08/02/23 @ 13:51 by Troy Madden MD) Diabetes mellitus type 2, controlled, without complications (Acute) HTN (hypertension) (Acute) Atypical chest pain (Acute) Non-ST elevation [place] (NSTEMI) (Acute) NSTEMI (non-ST elevated myocardial infarction) (Acute) Chest pain (Acute) SARS-CoV-2 positive (Acute ~08/31/21) Asthma, mild intermittent (Acute) Nasal polyp (Acute) Right facial swelling (Acute) Gout (Chronic) Medical History Normal colonoscopy History of pneumothorax Gout Surgical History History of esophagogastroduodenoscopy (EGD) 07/24/[address] Becky Pinto, [facility], normal, repeat in ten years. 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 Pets and animals: Yes Pets and animals: dog(s) Sexually active: No Do you think of yourself as: straight/heterosexual Current gender identity: male What is your relationship status?: never How often do you talk on the phone with friends or family?: once per week How often do you get together with friends or relatives?: once per week Do you belong to any clubs or organized social groups?: no Panel score (0-1 are the most socially isolated patients): 0 What type of physical activity do you participate in: occasional exercise Aleta/Worship: Methodist Seatbelt use: always Helmet use: Yes Drive intox or ride w/intox taxi driver: No Water heater temp set <120 deg: Yes Working smoke detector in home: Yes Fire extinguisher in home: Yes Carbon monox detector in home: Yes Do you feel safe at home: Yes Do you feel safe in your relationship?: Yes Time Spent with Patient Time Spent with Patient: <45 minutes Time was spent: preparing to see the patient(eg.review tests), referring, communicating with other health after school caregiver, indepentently interpreting results, counseling the patient and care coordination
== END 2023-08-02 14:32 | disposition short-term general hospital (02) | DRG 282 ==
LOC: ER 20:37 → MS 08-01 09:16
PROVIDERS: Internal Medicine; Admitting Provider Family Medicine; Emergency Provider Emergency Medicine; PCP Family Medicine; Visit Provider Family Medicine
DX: I21.4 Non-ST elevation (NSTEMI) myocardial infarction (principal); I10 Essential (primary) hypertension; E11.9 Type 2 diabetes mellitus without complications; G47.33 Obstructive sleep apnea (adult) (pediatric); F17.210 Nicotine dependence, cigarettes, uncomplicated; J20.9 Acute bronchitis, unspecified; J45.20 Mild intermittent asthma, uncomplicated; M10.9 Gout, unspecified; E66.01 Morbid (severe) obesity due to excess calories; Z68.34 Body mass index [BMI] 34.0-34.9, adult
CPT/HCPCS: 00123; 36415; 71275; 80053; 80061; 85027; 93005; 93308; 94640; 96365; 96372; 96375; 99285; 71046; 83036; 83735; 84443; 84484; 85025; 85610; 85730; 93010; 94664; 99223; 99233; 99238; J1650; J3490

== ENCOUNTER 2023-08-11 04:09 | Outpatient (CLI) | payer MEDICAID, SELFPAY ==
[2023-08-11 13:30] LABS: Anion Gap 8.3 mmol/L (3-11); BUN 27 mg/dL (7-18); CO2 27.7 mmol/L (21.0-32.0); CREATININE 1.2 mg/dL (0.70-1.30); Calcium 8.8 mg/dL (8.5-10.1); Chloride 99 mmol/L (98-107); Estimated GFR 69.66 (mL/min/1.73m2); Glucose 145 mg/dL (74-106); Potassium 4.2 mmol/L (3.5-5.1); Sodium 135 mmol/L (136-145)
== END 2023-08-11 04:10 | disposition home or self-care (01) ==
LOC: LBO 04:11
PROVIDERS: PCP Family Medicine; Referring Provider Family Medicine; Visit Provider Family Medicine
DX: I10 Essential (primary) hypertension (principal); E11.9 Type 2 diabetes mellitus without complications; I25.2 Old myocardial infarction
CPT/HCPCS: 36415; 80048

== ENCOUNTER 2023-08-25 08:55 | Outpatient (CLI) | payer MEDICAID, SELFPAY ==
--- NOTE | 2023-08-25 08:45 | RT.EKG_ITS ---
APPROVED REPORT Exam: Resting ECG Reason for Exam: hx NC Patient Location: O HR:84 bpm ECG Measurements Heart Rate 84 AXIS UT 146 P 80 QRSd 105 QRS -67 QT 487 T 52 QTc 576 Conclusion Sinus rhythm...normal P axis, V-rate 50- 99 Inferior infarct, old...Q >35mS, II III aVF Nondiagnostic ST abnormalities
== END 2023-08-25 08:56 | disposition home or self-care (01) ==
LOC: DI.CARD 08:56
PROVIDERS: PCP Family Medicine; Visit Provider Internal Medicine Cardiovascular Disease
DX: I21.4 Non-ST elevation (NSTEMI) myocardial infarction (principal); Z95.5 Presence of coronary angioplasty implant and graft
CPT/HCPCS: 93010

== ENCOUNTER 2023-09-01 08:11 | Outpatient (RCR) | payer MEDICAID, SELFPAY | END 2023-09-02 23:59 | disposition home or self-care (01) | LOC: CR 08:11 | PROVIDERS: PCP Family Medicine; Visit Provider Internal Medicine Cardiovascular Disease | DX: I21.4 Non-ST elevation (NSTEMI) myocardial infarction (principal); Z51.89 Encounter for other specified aftercare | CPT/HCPCS: S9472 ==

== ENCOUNTER 2023-10-01 08:00 | Outpatient (RCR) | payer MEDICAID, SELFPAY | END 2023-10-03 23:59 | disposition home or self-care (01) | LOC: CR 08:00 | PROVIDERS: PCP Family Medicine; Visit Provider Internal Medicine Cardiovascular Disease | DX: I21.4 Non-ST elevation (NSTEMI) myocardial infarction (principal); Z51.89 Encounter for other specified aftercare | CPT/HCPCS: S9472 ==

== ENCOUNTER 2023-10-03 01:14 | Outpatient (CLI) | payer MEDICAID, SELFPAY ==
[2023-10-03] MEDS: Levalbuterol HFA 15 GM INH 4 PUFF IH (09:10)
[2023-10-03] MEDS: Inhaler, Assist Device 1 EACH MC (09:10)
--- NOTE | 2023-10-03 13:38 | W.PFT ---
Date of service: 10/03/23 Time of Service: 08:00 Pulmonary Function Test Result Indications: Dyspnea on exertion Interpretation Spirometry: There is moderate airflow limitation.Very significant bronchodilator response. Lung Volumes: There is hyperinflation and air trapping Diffusion Capacity: Decreased diffusion Airway Pressure: Increased airways resistance Impression Moderate airflow obstruction with a bronchodilator response, air trapping, decreased diffusion and increased resistance. This could be consistent with COPD with emphysema or possible asthma-COPD overlap syndrome. Clinical Correlation therefore is recommended.
== END 2023-10-03 01:15 | disposition home or self-care (01) ==
LOC: RT 01:14
PROVIDERS: PCP Family Medicine; Visit Provider Internal Medicine Interventional Cardiology
DX: J44.1 Chronic obstructive pulmonary disease with (acute) exacerbation (principal)
CPT/HCPCS: 94060; 94726; 94729

== ENCOUNTER 2023-10-10 07:22 | Emergency (ER) | payer MEDICAID, SELFPAY ==
[2023-10-10 07:23] VITALS: BP 123/78; PULSE 75; RESP 15; TEMP 36.7; O2SAT 99
--- NOTE | 2023-10-10 07:50 | ED.GENADUL_ITS ---
Discharge Plan Disposition Patient Disposition: Home Condition: Stable Discharge Details Clinical Impression: Laceration of lower lip Primary Care Provider: Milton Cameron ED Provider: Niraj Cowan Home Meds and New Rx's Prescriptions: Continued metformin 500 mg tablet 500 mg PO BID Qty: 180 3RF (DME) Beti Couch [facility] Spacer See Rx Instructions .ROUTE .MEDSUPPLY Qty: 1 Rx Instructions: As directed ascorbic acid (vitamin C) 1,000 mg tablet 1 g PO Q6H polyethylene glycol 3350 [Miralax] 17 gram/dose powder 17 g PO DAILY albuterol sulfate [Ventolin HFA] 90 mcg/actuation HFA aerosol inhaler 2 puff inhalation Q4H PRN (Reason: shortness of breath or wheezing) Qty: 8.5 6RF (DME) Blood Glucose Test Strip See Rx Instructions .ROUTE .MEDSUPPLY Qty: 100 3RF Rx Instructions: As directed to check blood glucose daily. No insulin. Dispense covered brand. (DME) blood-glucose meter Misc See Rx Instructions .ROUTE .MEDSUPPLY Qty: 1 0RF Rx Instructions: As directed to check blood glucose. No insulin. Dispense covered brand. (DME) lancets Misc See Rx Instructions .ROUTE .MEDSUPPLY Qty: 100 3RF Rx Instructions: As directed to check blood glucose daily. No insulin. Dispense covered brand. atorvastatin 40 mg tablet 40 mg PO DAILY nitroglycerin 0.4 mg tablet, sublingual 0.4 mg sublingual Q5-15M PRN (Reason: chest pain) Qty: 30 7RF Rx Instructions: do not exceed 3 doses per episode metoprolol succinate 25 mg tablet extended release 24 hr 25 mg PO DAILY Qty: 90 3RF lisinopril 2.5 mg tablet 2.5 mg PO DAILY Qty: 90 3RF ticagrelor 90 mg tablet 90 mg PO BID Qty: 180 1RF dapagliflozin propanediol [Farxiga] 5 mg tablet 5 mg PO DAILY Qty: 90 3RF aspirin 81 mg tablet,chewable 81 mg PO DAILY Qty: 14 0RF Discharge Instructions Instructions: Skin Adhesive Care (ED) Additional Instructions: Please contact your primary care physician to arrange follow-up. Return to the ER immediately for any worsening or new concerning symptoms. Referrals: Milton Cameron DO [Primary Care Provider] - HPI General Mode of arrival: ambulatory . Date/Time Provider Initiated Documentation: 10/10/23 07:50 . Limitations to Documentation: no limitations . Information obtained by: patient . HPI Narrative: 58-year-old male presents with chief complaint of lip laceration. Patient notes he was shaving and cut his lip accidentally this morning and has been bleeding. Has not been able to stop the bleeding. Patient does note that he is on a blood thinner. Related Data Home Medications Medication Instructions Recorded Confirmed aspirin 81 mg chewable tablet 81 mg PO DAILY #14 tabs 04/30/18 10/10/23 inhalational spacing device #1 ea 12/01/20 10/10/23 ([facility]za [facility] spacer) ascorbic acid (vitamin C) 1,000 mg 1 g PO Q6H 09/06/21 10/10/23 tablet polyethylene glycol 3350 17 17 g PO DAILY 09/06/21 10/10/23 gram/dose oral powder (Miralax) albuterol sulfate 90 mcg/actuation 2 puff inhalation Q4H PRN 05/02/22 10/10/23 aerosol inhaler (Ventolin HFA) shortness of breath or wheezing #8.5 grams atorvastatin 40 mg tablet 40 mg PO DAILY 08/07/23 10/10/23 blood sugar diagnostic (Blood #100 ea 08/12/23 10/10/23 Glucose Test strips) blood-glucose meter #1 ea 08/12/23 10/10/23 lancets #100 ea 08/12/23 10/10/23 nitroglycerin 0.4 mg sublingual 0.4 mg sublingual Q5-15M PRN chest 08/28/23 10/10/23 tablet pain #30 tabs dapagliflozin propanediol 5 mg 5 mg PO DAILY #90 tabs 09/04/23 10/10/23 tablet (Farxiga) lisinopril 2.5 mg tablet 2.5 mg PO DAILY #90 tabs 09/04/23 10/10/23 metoprolol succinate 25 mg 25 mg PO DAILY #90 tabs 09/04/23 10/10/23 tablet,extended release 24 hr ticagrelor 90 mg tablet 90 mg PO BID #180 tabs 09/04/23 10/10/23 metformin 500 mg tablet 500 mg PO BID #180 tabs 09/11/23 10/10/23 Previous Rx's Medication Instructions Recorded aspirin 81 mg chewable tablet 81 mg PO DAILY #14 tabs 04/30/18 albuterol sulfate 90 mcg/actuation 2 puff inhalation Q4H PRN 05/02/22 aerosol inhaler (Ventolin HFA) shortness of breath or wheezing #8.5 grams blood sugar diagnostic (Blood #100 ea 08/12/23 Glucose Test strips) blood-glucose meter #1 ea 08/12/23 lancets #100 ea 08/12/23 nitroglycerin 0.4 mg sublingual 0.4 mg sublingual Q5-15M PRN chest 08/28/23 tablet pain #30 tabs dapagliflozin propanediol 5 mg 5 mg PO DAILY #90 tabs 09/04/23 tablet (Farxiga) lisinopril 2.5 mg tablet 2.5 mg PO DAILY #90 tabs 09/04/23 metoprolol succinate 25 mg 25 mg PO DAILY #90 tabs 09/04/23 tablet,extended release 24 hr ticagrelor 90 mg tablet 90 mg PO BID #180 tabs 09/04/23 metformin 500 mg tablet 500 mg PO BID #180 tabs 09/11/23 Allergies Allergy/AdvReac Type Severity Reaction Status Date / Time Seasonal Allergy Intermediate Other (See Uncoded 10/10/23 07:28 Comment) General Stated Complaint: Laceration JEANNETTE: 4 Review of Systems Integumentary/Breasts Skin/Breast: Reports as per HPI Exam Skin Trauma: laceration (2 small superficial lacerations vermilion border lower lip, active bleed) Course Vital Signs Vital signs: Vital Signs Temperature 36.7 C 10/10/23 07:23 Pulse 75 10/10/23 07:23 Respiratory Rate 15 10/10/23 07:23 Blood Pressure 123/78 10/10/23 07:23 Pulse Oximetry 99 10/10/23 07:23 Temperature 36.7 C 10/10/23 07:23 Temperature Source Temporal Artery Scan 10/10/23 07:23 Pulse 75 10/10/23 07:23 Respiratory Rate 15 10/10/23 07:23 Respiratory Effort Normal 10/10/23 07:27 Blood Pressure 123/78 10/10/23 07:23 Blood Pressure Position Sitting 10/10/23 07:23 Pulse Oximetry 99 10/10/23 07:23 Oxygen Delivery Method Room Air 10/10/23 07:23 Oxygen Flow Rate 0 10/10/23 07:23 Pain Level 0 10/10/23 07:32 Procedures Laceration Laceration 1: Site: lip Size (cm): 0.5 Description: linear and involves ed border Depth: simple, single layer Skin layer closed with: other (skin adhesive) Medical Decision Making 58-year-old male who is on to ground lower and aspirin, presents after accidentally lacerating his lower lip at vermilion border while shaving just prior to arrival. Patient has oozing superficial lacerations that are small. Direct pressure was applied to control bleeding. Skin adhesive used to seal wound. Hemostasis achieved. Quality:SDOH Health Related Social Needs: Health related social needs transpo insecurity PFSH All Active Problems (Updated 10/10/23 @ 07:53 by Niraj Cowan MD) Laceration of lower lip (Acute) Ex-smoker for less than 1 year (Acute) Quit 07/26 Congestive heart failure (Chronic) EF 40-45%, 07/26 History of heart artery stent (Chronic) Cardiac Stenting x 3 to cx at [facility] 08/04/2023. Diabetes mellitus type 2, controlled, without complications (Acute) HTN (hypertension) (Acute) Atypical chest pain (Acute) Non-ST elevation [place] (NSTEMI) (Acute) NSTEMI (non-ST elevated myocardial infarction) (Acute) SARS-CoV-2 positive (Acute ~08/31/21) Asthma, mild intermittent (Acute) Nasal polyp (Acute) Right facial swelling (Acute) Gout (Chronic) Medical History Normal colonoscopy History of pneumothorax Gout Surgical History History of esophagogastroduodenoscopy (EGD) 07/24/[address] Becky Pinto, [facility], normal, repeat in ten years. mg History of arthroscopy of left knee Social History Smoking/Tobacco Use Status: Former Tobacco Use Tobacco: How many years used: 15 Smoking risk assessment performed?: Yes Alcohol Intake: never Drug use: Occasionally Substance use type: does not use and marijuana Details: No longer uses Adopted: No Caregiver/Support person: No Foster care: No Household members: friend(s) and other Details: nicolette flores who he takes care of Housing: house Number of Children: 1 Communication Needs: None Education Level: high school Do you need help understanding health information?: Often current occupation: [employer] Pets and animals: Yes Pets and animals: dog(s) Sexually active: No Do you think of yourself as: straight/heterosexual Current gender identity: male What is your relationship status?: never How often do you talk on the phone with friends or family?: once per week How often do you get together with friends or relatives?: once per week Do you belong to any clubs or organized social groups?: no Panel score (0-1 are the most socially isolated patients): 0 What type of physical activity do you participate in: occasional exercise Aleta/Congregational: Buddhist Seatbelt use: always Helmet use: Yes Drive intox or ride w/intox motor coach driver: No Water heater temp set <120 deg: Yes Working smoke detector in home: Yes Fire extinguisher in home: Yes Carbon monox detector in home: Yes Do you feel safe at home: Yes Do you feel safe in your relationship?: Yes
== END 2023-10-10 08:07 | disposition home or self-care (01) ==
PROVIDERS: Emergency Provider Student in an Organized Health Care Education/Training Program; PCP Family Medicine
DX: S01.511A Laceration without foreign body of lip, initial encounter (principal); Z79.01 Long term (current) use of anticoagulants; W26.8XXA Contact with other sharp object(s), not elsewhere classified, initial encounter
CPT/HCPCS: 99281; 99283

== ENCOUNTER 2023-10-31 08:00 | Outpatient (RCR) | payer MEDICAID, SELFPAY | END 2023-11-02 23:59 | disposition home or self-care (01) | LOC: CR 08:00 | PROVIDERS: PCP Family Medicine; Visit Provider Internal Medicine Cardiovascular Disease | DX: I21.4 Non-ST elevation (NSTEMI) myocardial infarction (principal) | CPT/HCPCS: S9472 ==

== ENCOUNTER 2023-12-03 08:33 | Outpatient (RCR) | payer MEDICAID, SELFPAY | END 2023-12-03 23:59 | disposition home or self-care (01) | LOC: CR 08:33 | PROVIDERS: PCP Family Medicine; Visit Provider Internal Medicine Cardiovascular Disease | DX: I21.4 Non-ST elevation (NSTEMI) myocardial infarction (principal); I50.23 Acute on chronic systolic (congestive) heart failure | CPT/HCPCS: S9472 ==

== ENCOUNTER 2023-12-22 07:49 | Outpatient (RCR) | payer MEDICAID, SELFPAY | END 2024-01-03 23:59 | disposition home or self-care (01) | LOC: CR 07:49 | PROVIDERS: PCP Family Medicine; Visit Provider Internal Medicine Cardiovascular Disease | DX: I21.4 Non-ST elevation (NSTEMI) myocardial infarction (principal); I50.22 Chronic systolic (congestive) heart failure; Z95.5 Presence of coronary angioplasty implant and graft; Z51.89 Encounter for other specified aftercare | CPT/HCPCS: S9472 ==

== ENCOUNTER 2024-07-08 02:08 | Outpatient (CLI) | payer MEDICAID, SELFPAY ==
--- NOTE | 2024-07-08 12:30 | DI.US_ITS ---
APPROVED REPORT EXAM: Comprehensive 2D, Doppler, and color-flow Echocardiogram Patient Location: Out-Patient Chip Unloader: Mello Unger RDCS (AE) Indications: Recheck LV function, ischemic cardiomyopathy, h/o heart artery stent Other Information Study Quality: Adequate. Technically limited study due to body habitus. Conclusion Borderline dilated left ventricle. Normal left ventricular wall thickness. Ejection fraction is 40 to 45%. There is global hypokinesis Normal right ventricular size and function Both atria are normal in size Aortic valve is sclerotic and trileaflet without stenosis or regurgitation Mild mitral annular calcification Wall motion Left Ventricle Left ventricle is mildly dilated. Left ventricular systolic function is mildly decreased. There is no rmal left ventricular wall thickness. There is global hypokinesis of the left ventricle. There is no ventricular septal defect visualized. LVEF is 40-45%. Right Ventricle Right ventricle is mildly dilated. Right ventricular systolic function is grossly normal. Atria The left atrium size is normal. Right atrium is moderately dilated. The interatrial septum is intact with no evidence for an atrial septal defect. Aortic Valve The aortic valve is sclerotic. There is no aortic valvular stenosis. No aortic regurgitation is prese nt. Mitral Valve Mild mitral annular calcification. No evidence of mitral valve stenosis. There is no mitral valve reg urgitation noted. Tricuspid Valve The tricuspid valve is normal in structure. There is no tricuspid valve stenosis. Trace tricuspid reg urgitation. Pulmonic Valve The pulmonary valve is normal in structure. There is no pulmonic valvular stenosis. There is no pulmo dinesh valvular regurgitation. Great Vessels The aortic root is normal in size. Ascending aorta is not well visualized. Aortic arch is not well vi sualized. IVC is normal in size and collapses >50% with inspiration. Pericardium There is no pericardial effusion. 2D Dimensions IVSD d PLAX 0.69 cm M: 0.6-1.2 Ao Root d 3.12 cm M: 3.1 - 3.7 LVPW d PLAX 0.69 cm M: 0.6 - 1.2 LVID d PLAX 6.26 cm M: 4.2 - 5.8 LVDs 4.94 cm M: 2.5 - 4.0 LV EF Teichholz 42.2 % FS 21.18 % LV EDV (Teich) 198.6 mL LV ESV (Teich) 114.9 mL Stroke Vol Index (Teich) 45.77 M-Mode TAPSE 2.31 cm (M/F) >1.7 Auto EF LV EDV A4C 125.1 mL LV EDV A2C 187.4 mL LV EDV BP 154.2 mL LV ESV A4C 68.3 mL LV ESV A2C 112.1 mL LV ESV BP 90.7 mL LVEF(%) A4C 45.4 % LVEF(%) A2C 40.2 % LVEF(%) BP 41.2 % LV SV A4C 56.8 ml LV SV A2C 75.3 ml LV SV BP 63.5 ml LV CO A4C 3.6 L/min LV CO A2C 5.0 L/min LV CO BP 4.3 L/min HR A4C 63.58 BPM HR A2C 66.79 BPM LV EDV Index (BP) LA Volume LA Length A4C 3.7 cm LA Length A2C 4.1 cm LA Area A4C s 7.85 cm2 LA Area A2C s 11.04 cm2 LA Vol A4C A-L 14.03 mL LA Vol A2C A-L 25.27 mL LA Vol Biplane A-L 19.7 mL LA Vol/BSA A4C A-L LA Vol/BSA A2C A-L LA Vol/BSA BP A-L 10.8 mL/m2 LA Vol A4C MOD 12.7 mL LA Vol A2C MOD 23.5 mL LA Vol BP MOD 18.1 mL RA Volume RA Area A4C 11.4 cm2 RA ESV A4C (A-L) 28.6mL RA Vol/BSA A4C A-L RA Length A4C 3.9 cm RA ESV A4C (MOD) 25.8mL LV Diastology MV E' medial 0.058 (>0.07 m/s) MV E Vmax 0.69 (0.4-1.3 m/s) MV E/E' MED 11.76 (<14) MV A Vmax 0.75 (0.4-1.3 m/s) MV E' lateral 0.062 (>0.1 m/s) E/A Ratio 0.9 MV E/E' LAT 11.00 (<14) MV E' Average 0.060 m/s MV E/E'(average) 11.36 Aortic Valve AoV Vmax 1.03 m/s LVOT Vmax 0.96 m/s AoV Peak Grad 4.2 mmHg LVOT Peak Grad 3.7 mmHg AoV Area (Vmax) 2.56 cm2 LVOT VTI 0.178 m AoV VTI 0.188 m LVOT Mean Grad 1.9 mmHg AoV Mean Robert. 0.69 m/s LVOT SV 48.87 mL AoV Mean Grad 2.2 mmHg LVOT Diam s 1.85 cm AoV Area (VTI) 2.60 cm2 AV Regurg Peak Gr. 4.25 mmHg Velocity Ratio 0.93 Mitral Valve MV DT 251 (160-240 msec) Pulmonary Valve PV Vmax 0.79 (0.5-1.5 m/s) RVOT Vmax 0.63 m/s PV Peak Grad 2.5 mmHg RVOT Peak Gr. 1.6 mmHg PV Mean Robert 0.57 m/s RVOT VTI 0.121 m PV Mean Grad 1.5 mmHg RVOT Mean Gr. 0.7 mmHg
== END 2024-07-08 02:28 ==
PROVIDERS: PCP Family Medicine; Visit Provider Internal Medicine Cardiovascular Disease
DX: I25.5 Ischemic cardiomyopathy (principal); Z95.5 Presence of coronary angioplasty implant and graft
CPT/HCPCS: 93306

== ENCOUNTER 2025-03-25 00:20 | Outpatient (CLI) | payer SELFPAY ==
[2025-03-25 13:44] LABS: Cholesterol 130 mg/dL (<200); HDL Cholesterol 46 mg/dL (>40)
== END 2025-03-25 00:21 | disposition home or self-care (01) ==
LOC: LBO 00:21
PROVIDERS: PCP Family Medicine; Referring Provider Family Medicine; Visit Provider Family Medicine
DX: Z95.5 Presence of coronary angioplasty implant and graft (principal)
CPT/HCPCS: 36415; 80061